=== PATIENT | female | born 1950 | race Caucasian/White ===

== ENCOUNTER 2017-01-25 02:02 | Emergency (ER) | payer MEDICARE ==
[~2017-01-25 02:02] MED LIST: ACET-66 PO; ALPR1TAB7 PO; AMIT75TA2 PO; ASPI-1197 PO; BACL10TA PO; CHLO500T3 PO; GABA-326 PO; LEVO88TA7 PO; MONT10TA24 PO; OXYC20TA41 PO; SERT100T12 PO; SIMV40TA59 PO
[2017-01-25 02:42] LABS: APPEARANCE,URINE Cloudy (CLEAR); BILIRUBIN,URINE Negative (NEGATIVE); COLOR,URINE Yellow (YELLOW); GLUCOSE, URINE (UA) Negative (NEGATIVE); KETONES,URINE 40 mg/dL (NEGATIVE); LEUKOCYTE ESTERASE ,URINE Large (NEGATIVE); NITRATE,URINE Positive (NEGATIVE); OCCULT BLOOD,URINE Negative (NEGATIVE); PROTEIN,URINE Negative (NEGATIVE)
[2017-01-25 02:46] LABS: BASOPHILS % (AUTO) 0.4 % (0.0-5.0); EOSINOPHILS % (AUTO) 0.9 % (0.0-8.0); LYMPHOCYTES % (AUTO) 9.8 % (21.0-51.0); MEAN CORPUSCULAR HEMOGLOBIN 28.8 pg (27.0-33.0); MEAN CORPUSCULAR HGB CONC 32.8 g/dL (32.0-36.0); MEAN CORPUSCULAR VOLUME 87.9 fL (79-99); MONOCYTES % (AUTO) 10.7 % (3.0-13.0); NEUTROPHILS % (AUTO) 78.2 % (40.0-77.0); PLATELET COUNT (AUTO) 310 K/uL (130-400); RED BLOOD CELL COUNT(AUTO) 3.87 MIL/uL (4.00-5.50); RED CELL DISTRIBUTION WIDTH 14.5 % (11.0-15.5); WHITE BLOOD COUNT (AUTO) 7.3 K/uL (4.8-10.8)
[2017-01-25 02:50] LABS: AMPHET/METH SCREEN,URINE NEGATIVE (NEGATIVE); BARBITURATE SCREEN, URINE NEGATIVE (NEGATIVE); BENZODIAZEPINES SCREEN,URINE NEGATIVE (NEGATIVE); CANNABINOID SCREEN,URINE NEGATIVE (NEGATIVE); COCAINE SCREEN,URINE NEGATIVE (NEGATIVE); OPIATE SCREEN,URINE NEGATIVE (NEGATIVE); PHENCYCLIDINE SCREEN,URINE NEGATIVE (NEGATIVE)
[2017-01-25 02:53] LABS: RBC,URINE None Seen /HPF (0-1)
[2017-01-25 02:54] LABS: BACTERIA,URINE Many /HPF (None Seen); MUCUS,URINE None Seen LPF (None Seen); SQUAMOUS EPITHELIAL CELL,UR Few /LPF (0-2)
[2017-01-25 02:59] LABS: ALBUMIN 2.1 g/dL (3.5-5.0); BILIRUBIN,TOTAL 0.3 mg/dL (0.2-1.0); CREATININE 0.5 mg/dL (0.5-1.5); TOTAL PROTEIN, SERUM 5.8 g/dL (6.0-8.3)
[2017-01-25 03:01] LABS: POTASSIUM 2.8 mmol/L (3.5-5.1)
[2017-01-25] MEDS ORDERED: POTASSIUM BICARB/CIT AC 25 MEQ TABLET.EFF ONE ×2 (03:28→09:31)
[2017-01-25] MEDS ORDERED: LORAZEPAM 2 MG/ML 1 ML VIAL ONE (03:29)
[2017-01-25] MEDS ORDERED: CEFTRIAXONE SODIUM 1 GM ONE (07:23)
[2017-01-25] MEDS ORDERED: SODIUM CHLORIDE 0.9% 1000ML 1,000 ML IV ONE (07:28)
== END 2017-01-25 11:09 | disposition home or self-care (01) ==
LOC: EDH 02:02
DX: G40.909 Epilepsy, unspecified, not intractable, without status epilepticus (principal); F19.939 Other psychoactive substance use, unspecified with withdrawal, unspecified; N81.9 Female genital prolapse, unspecified; E87.6 Hypokalemia; J45.909 Unspecified asthma, uncomplicated; M19.90 Unspecified osteoarthritis, unspecified site; R42 Dizziness and giddiness
CPT/HCPCS: 36415; 51702; 70160; 70450; 72125; 74000; 80053; 80305; 81001; 85025; 87088; 87186; 96361; 96374; 96375; 99285; J0696; J2060; J7030; 51701

== ENCOUNTER → 2017-01-31 | Outpatient (CLI) | payer MEDICARE ==
[~2017-01-31] MED LIST changes: +ALBU18HF7 IH; +BUDE10.22 IH; +CLOP75TA32 PO; +DOCU100T9 PO; +FLUT16H NS; +REGADENOSON 0.4 MG/5 ML PF SYG IVP SCH
== END | disposition home or self-care (01) ==
LOC: SHCH 16:55
PROVIDERS: ATTEND Internal Medicine Cardiovascular Disease
DX: R07.9 Chest pain, unspecified (principal)
CPT/HCPCS: 78452; 93017; 96374; A9500 ×2; J2785

== ENCOUNTER 2017-04-08 22:43 | Inpatient (IN) | payer MEDICARE, OTHER ==
[~2017-04-08] VITALS: Ht 160 cm; Wt 53.5 kg
[~2017-04-08 22:43] MED LIST changes: -ALBU18HF7 IH; -BUDE10.22 IH; -CLOP75TA32 PO; -DOCU100T9 PO; -FLUT16H NS; -REGADENOSON 0.4 MG/5 ML PF SYG IVP SCH
[2017-04-08] MEDS ORDERED: ONDANSETRON HCL 4 MG/2 ML VIAL ONE (23:57)
[2017-04-08] MEDS ORDERED: SODIUM CHLORIDE 0.9% 1000ML 1,000 ML IV ONE (23:57)
[2017-04-08] MEDS ORDERED: MORPHINE SULFATE 4 MG/1ML SYG ONE (23:57)
[2017-04-09 00:02] LABS: APPEARANCE,URINE Clear (CLEAR); BILIRUBIN,URINE Negative (NEGATIVE); COLOR,URINE Yellow (YELLOW); GLUCOSE, URINE (UA) Negative (NEGATIVE); KETONES,URINE Negative (NEGATIVE); LEUKOCYTE ESTERASE ,URINE Negative (NEGATIVE); NITRATE,URINE Negative (NEGATIVE); OCCULT BLOOD,URINE Negative (NEGATIVE); PH,URINE 7.5 (5.0-8.0); PROTEIN,URINE Negative (NEGATIVE); UROBILINOGEN,URINE 0.2 mg/dL (0.2-1.0)
[2017-04-09 00:20] LABS: BASOPHILS % (AUTO) 0.6 % (0.0-5.0); EOSINOPHILS % (AUTO) 1.5 % (0.0-8.0); HEMATOCRIT 35.2 % (36-48); LYMPHOCYTES % (AUTO) 13.8 % (21.0-51.0); MEAN CORPUSCULAR HEMOGLOBIN 28.1 pg (27.0-33.0); MEAN CORPUSCULAR HGB CONC 33.3 g/dL (32.0-36.0); MEAN CORPUSCULAR VOLUME 84.5 fL (79-99); MONOCYTES % (AUTO) 8.3 % (3.0-13.0); NEUTROPHILS % (AUTO) 75.8 % (40.0-77.0); PLATELET COUNT (AUTO) 197 K/uL (130-400); RED BLOOD CELL COUNT(AUTO) 4.16 MIL/uL (4.00-5.50); RED CELL DISTRIBUTION WIDTH 14.2 % (11.0-15.5); WHITE BLOOD COUNT (AUTO) 6.3 K/uL (4.8-10.8)
[2017-04-09 00:32] LABS: CREATININE 0.6 mg/dL (0.5-1.5); POTASSIUM 3.9 mmol/L (3.5-5.1)
[2017-04-09 00:37] LABS: ALBUMIN 3.1 g/dL (3.5-5.0); BILIRUBIN,TOTAL 0.5 mg/dL (0.2-1.0); TOTAL PROTEIN, SERUM 6.7 g/dL (6.0-8.3)
[2017-04-09 01:26] LABS: ERYTHROCYTE SEDIMENTATION RATE 22 MM/HR (0-15)
[2017-04-09] MEDS ORDERED: VANCOMYCIN 1GM+NS 250ML 250 ML IV SCH (02:00)
[2017-04-09] MEDS ORDERED: ACETAMINOPHEN 325 MG TAB PO PRN ×2 (02:00)
[2017-04-09] MEDS ORDERED: POTASSIUM CHLORIDE 20 MEQ ERTAB PO PRN (02:00)
[2017-04-09] MEDS ORDERED: POTASSIUM CHLORIDE 20MEQ/100ML 100 ML IV PRN (02:00)
[2017-04-09] MEDS ORDERED: HYDRALAZINE HCL 20 MG/ML VIAL IV PRN (02:00)
[2017-04-09] MEDS ORDERED: MORPHINE SULFATE 2 MG/ML 1ML SYG IV PRN (02:00)
[2017-04-09] MEDS ORDERED: POTASSIUM CHLORIDE 10% ELIXIR 20 MEQ/15 ML UDCUP PO PRN (02:00)
[2017-04-09] MEDS ORDERED: CEFTRIAXONE 1GM/D5W 50ML 50 ML IV SCH (02:00)
[2017-04-09] MEDS ORDERED: LIDOCAINE HCL-MPF 1% 2ML VIAL IVP PRN (02:00)
[2017-04-09] MEDS ORDERED: ONDANSETRON HCL 4 MG/2 ML VIAL IV PRN (02:00)
[2017-04-09] MEDS ORDERED: VANCOMYCIN 1GM+NS 250ML 250 ML IV ONE (02:05)
[2017-04-09 02:23] LABS: AMPHET/METH SCREEN,URINE NEGATIVE (NEGATIVE); BARBITURATE SCREEN, URINE NEGATIVE (NEGATIVE); BENZODIAZEPINES SCREEN,URINE POSITIVE (NEGATIVE); CANNABINOID SCREEN,URINE NEGATIVE (NEGATIVE); COCAINE SCREEN,URINE NEGATIVE (NEGATIVE); OPIATE SCREEN,URINE NEGATIVE (NEGATIVE); PHENCYCLIDINE SCREEN,URINE NEGATIVE (NEGATIVE)
[2017-04-09 02:45] VITALS: BP 114/61
[2017-04-09] MEDS ORDERED: MORPHINE SULFATE 4 MG/1ML SYG ONE (03:40)
[2017-04-09] MEDS: CEFTRIAXONE SODIUM 1 GM IVP SCH (03:43)
[2017-04-09] MEDS ORDERED: CLOP75TA32 PO (04:42)
[2017-04-09] MEDS ORDERED: BUDE10.22 IH (04:42)
[2017-04-09] MEDS ORDERED: FLUT16H NS (04:42)
[2017-04-09] MEDS ORDERED: DOCU100T9 PO (04:42)
[2017-04-09] MEDS ORDERED: ALBU18HF7 IH (04:42)
[2017-04-09] MEDS ORDERED: GABA-326 PO (04:42)
[2017-04-09] MEDS: ACETAMINOPHEN-CODEINE 300/30MG TAB PO PRN ×2 (05:52→10:57)
[2017-04-09 06:18] LABS: HEMATOCRIT 32.8 % (36-48); MEAN CORPUSCULAR HEMOGLOBIN 29.2 pg (27.0-33.0); MEAN CORPUSCULAR HGB CONC 34.5 g/dL (32.0-36.0); MEAN CORPUSCULAR VOLUME 84.5 fL (79-99); PLATELET COUNT (AUTO) 184 K/uL (130-400); RED BLOOD CELL COUNT(AUTO) 3.88 MIL/uL (4.00-5.50); RED CELL DISTRIBUTION WIDTH 14.6 % (11.0-15.5); WHITE BLOOD COUNT (AUTO) 6.1 K/uL (4.8-10.8)
[2017-04-09 06:45] LABS: CREATININE 0.7 mg/dL (0.5-1.5); POTASSIUM 4.1 mmol/L (3.5-5.1)
[2017-04-09 08:00] VITALS: BP 107/66
[2017-04-09] MEDS ORDERED: MORPHINE SULFATE 2 MG/ML 1ML SYG IVP PRN (09:45)
[2017-04-09] MEDS ORDERED: VANCOMYCIN PROTOCOL PER PHARMACY IV PRN (09:45)
[2017-04-09] MEDS: FAMOTIDINE 20MG TAB 20 MG TAB PO SCH ×2 (09:48→22:18)
[2017-04-09] MEDS ORDERED: ALBUTEROL SULFATE 0.083% 2.5 MG/3 ML INH IH PRN (10:15)
[2017-04-09] MEDS: VANCOMYCIN 1GM+NS 250ML 250 ML IV SCH ×2 (11:00→22:19)
[2017-04-09 11:38] VITALS: BP 104/63
[2017-04-09] MEDS: ALBUTEROL SULFATE 0.083% 2.5 MG/3 ML INH IH SCH ×3 (14:12→22:41)
[2017-04-09] MEDS: BACLOFEN 10 MG TABLET PO SCH ×2 (14:57→22:18)
[2017-04-09] MEDS: KETOROLAC TROMETHAMINE 15MG/ML IV PRN (14:58)
[2017-04-09 16:00] VITALS: BP 114/60
[2017-04-09 19:51] VITALS: BP 139/72
[2017-04-09] MEDS: AMITRIPTYLINE HCL PO SCH (21:00)
[2017-04-09] MEDS: ATORVASTATIN CALCIUM 20 MG TABLET PO SCH (22:18)
[2017-04-09] MEDS: MORPHINE SULFATE 4 MG/1ML SYG IVP PRN (22:27)
[2017-04-10] VITALS (7 sets, daily range): BP systolic 92–123; BP diastolic 51–67
[2017-04-10] MEDS: ALBUTEROL SULFATE 0.083% 2.5 MG/3 ML INH IH SCH ×4 (01:27→22:01)
[2017-04-10] MEDS: MORPHINE SULFATE 4 MG/1ML SYG IVP PRN (02:35)
[2017-04-10] MEDS: CEFTRIAXONE SODIUM 1 GM IVP SCH (04:13)
[2017-04-10 06:10] LABS: HEMATOCRIT 34.5 % (36-48); MEAN CORPUSCULAR HGB CONC 32.7 g/dL (32.0-36.0); MEAN CORPUSCULAR VOLUME 85.6 fL (79-99); PLATELET COUNT (AUTO) 196 K/uL (130-400); RED BLOOD CELL COUNT(AUTO) 4.03 MIL/uL (4.00-5.50); RED CELL DISTRIBUTION WIDTH 14.7 % (11.0-15.5); WHITE BLOOD COUNT (AUTO) 4.7 K/uL (4.8-10.8)
[2017-04-10 06:16] LABS: CREATININE 0.6 mg/dL (0.5-1.5); POTASSIUM 3.7 mmol/L (3.5-5.1)
[2017-04-10] MEDS: BUDESONIDE 0.5 MG/2 ML INH IH PRN (06:27)
[2017-04-10] MEDS: LEVOTHYROXINE 88 MCG TABLET PO SCH (07:27)
[2017-04-10] MEDS: FLUTICASONE PROPIONATE 50MCG/SPRAY 16 GM BOTTLE EN SCH (09:00)
[2017-04-10] MEDS: ENOXAPARIN SODIUM 40 MG/0.4 ML SYRINGE SQ SCH (09:03)
[2017-04-10] MEDS: CLOPIDOGREL BISULFATE 75 MG TAB PO SCH (09:03)
[2017-04-10] MEDS: ASPIRIN 81MG TAB.CHEW PO SCH (09:04)
[2017-04-10] MEDS: BACLOFEN 10 MG TABLET PO SCH ×3 (09:04→20:56)
[2017-04-10] MEDS: DOCUSATE SODIUM 100 MG CAP PO SCH (09:04)
[2017-04-10] MEDS: FAMOTIDINE 20MG TAB 20 MG TAB PO SCH ×2 (09:04→20:56)
[2017-04-10] MEDS: VANCOMYCIN 1GM+NS 250ML 250 ML IV SCH ×2 (09:05→23:12)
[2017-04-10] MEDS: KETOROLAC TROMETHAMINE 15MG/ML IV PRN ×2 (11:06→18:43)
[2017-04-10] MEDS: ALPRAZOLAM 1 MG TAB PO PRN ×2 (11:06→23:15)
[2017-04-10] MEDS: ATORVASTATIN CALCIUM 20 MG TABLET PO SCH (20:56)
[2017-04-10] MEDS: AMITRIPTYLINE HCL PO SCH (21:00)
[2017-04-11] MEDS: CEFTRIAXONE SODIUM 1 GM IVP SCH (03:10)
[2017-04-11 03:43] VITALS: BP 114/64
[2017-04-11] MEDS: LEVOTHYROXINE 88 MCG TABLET PO SCH (06:36)
[2017-04-11 06:53] LABS: HEMATOCRIT 37.6 % (36-48); MEAN CORPUSCULAR HGB CONC 32.7 g/dL (32.0-36.0); MEAN CORPUSCULAR VOLUME 85.6 fL (79-99); NUCLEATED RED BLOOD CELLS 0.1 % (0.0-0.19); PLATELET COUNT (AUTO) 213 K/uL (130-400); RED BLOOD CELL COUNT(AUTO) 4.39 MIL/uL (4.00-5.50); RED CELL DISTRIBUTION WIDTH 14.7 % (11.0-15.5); WHITE BLOOD COUNT (AUTO) 3.4 K/uL (4.8-10.8)
[2017-04-11 06:59] LABS: CREATININE 0.6 mg/dL (0.5-1.5); POTASSIUM 4.3 mmol/L (3.5-5.1)
[2017-04-11] MEDS: BUDESONIDE 0.5 MG/2 ML INH IH PRN (07:07)
[2017-04-11] MEDS: ALBUTEROL SULFATE 0.083% 2.5 MG/3 ML INH IH SCH ×3 (07:07→21:57)
[2017-04-11 08:00] VITALS: BP 102/62
[2017-04-11] MEDS: DOCUSATE SODIUM 100 MG CAP PO SCH (08:29)
[2017-04-11] MEDS: KETOROLAC TROMETHAMINE 15MG/ML IV PRN (08:29)
[2017-04-11] MEDS: ACETAMINOPHEN-CODEINE 300/30MG TAB PO PRN ×3 (08:29→20:48)
[2017-04-11] MEDS: FLUTICASONE PROPIONATE 50MCG/SPRAY 16 GM BOTTLE EN SCH (08:30)
[2017-04-11] MEDS: ENOXAPARIN SODIUM 40 MG/0.4 ML SYRINGE SQ SCH (08:30)
[2017-04-11] MEDS: FAMOTIDINE 20MG TAB 20 MG TAB PO SCH ×2 (08:30→20:44)
[2017-04-11] MEDS: BACLOFEN 10 MG TABLET PO SCH ×3 (08:30→20:44)
[2017-04-11] MEDS: CLOPIDOGREL BISULFATE 75 MG TAB PO SCH (08:30)
[2017-04-11] MEDS: ASPIRIN 81MG TAB.CHEW PO SCH (08:30)
[2017-04-11 11:00] VITALS: BP 115/59
[2017-04-11] MEDS: HYDROMORPHONE HCL 2 MG/ML VIAL IVP PRN (14:32)
[2017-04-11] MEDS: VANCOMYCIN 1GM+NS 250ML 250 ML IV SCH ×2 (14:33→22:00)
[2017-04-11 16:00] VITALS: BP 113/68
[2017-04-11 20:00] VITALS: BP 102/63
[2017-04-11] MEDS: ATORVASTATIN CALCIUM 20 MG TABLET PO SCH (20:45)
[2017-04-11] MEDS ORDERED: DIATR MEGLU/DIATRIZOATE SODIUM 30 ML BOTTLE PO ONE (20:55)
[2017-04-11] MEDS: AMITRIPTYLINE HCL PO SCH (21:00)
[2017-04-12] VITALS: BP 107/61
[2017-04-12 04:00] VITALS: BP 123/57
[2017-04-12 04:45] LABS: HEMATOCRIT 30.6 % (36-48); MEAN CORPUSCULAR HGB CONC 35.4 g/dL (32.0-36.0); MEAN CORPUSCULAR VOLUME 84.7 fL (79-99); PLATELET COUNT (AUTO) 206 K/uL (130-400); RED BLOOD CELL COUNT(AUTO) 3.62 MIL/uL (4.00-5.50); RED CELL DISTRIBUTION WIDTH 14.2 % (11.0-15.5); WHITE BLOOD COUNT (AUTO) 2.8 K/uL (4.8-10.8)
[2017-04-12 05:10] LABS: EOSINOPHILS % (MANUAL) 8 % (1-6); LYMPHOCYTES % (MANUAL) 32 % (22-44); SEGMENTED NEUTROPHILS % 60 % (40-70)
[2017-04-12 05:11] LABS: MAN.DIFF COMMENT-IMPRESSION MANUAL DIFFERENTIAL; PLATELET MORPHOLOGY COMMENT ADEQUATE
[2017-04-12] MEDS: CEFTRIAXONE SODIUM 1 GM IVP SCH (05:17)
[2017-04-12] MEDS: ALBUTEROL SULFATE 0.083% 2.5 MG/3 ML INH IH SCH ×3 (06:41→22:19)
[2017-04-12] MEDS: BUDESONIDE 0.5 MG/2 ML INH IH PRN ×2 (06:50→22:23)
[2017-04-12] MEDS: LEVOTHYROXINE 88 MCG TABLET PO SCH (06:57)
[2017-04-12] MEDS: ASPIRIN 81MG TAB.CHEW PO SCH (07:37)
[2017-04-12] MEDS: ACETAMINOPHEN-CODEINE 300/30MG TAB PO PRN ×3 (07:37→17:59)
[2017-04-12] MEDS: FAMOTIDINE 20MG TAB 20 MG TAB PO SCH ×2 (07:37→21:16)
[2017-04-12] MEDS: ALPRAZOLAM 1 MG TAB PO PRN ×3 (07:37→17:59)
[2017-04-12] MEDS: DOCUSATE SODIUM 100 MG CAP PO SCH (07:37)
[2017-04-12] MEDS: ENOXAPARIN SODIUM 40 MG/0.4 ML SYRINGE SQ SCH (07:38)
[2017-04-12] MEDS: HYDROMORPHONE HCL 2 MG/ML VIAL IVP PRN ×4 (07:38→22:44)
[2017-04-12] MEDS: FLUTICASONE PROPIONATE 50MCG/SPRAY 16 GM BOTTLE EN SCH (07:38)
[2017-04-12 08:00] VITALS: BP 101/53
[2017-04-12 11:00] VITALS: BP 125/66
[2017-04-12] MEDS: VANCOMYCIN 1GM+NS 250ML 250 ML IV SCH ×2 (11:43→22:52)
[2017-04-12] MEDS: CLOPIDOGREL BISULFATE 75 MG TAB PO SCH (11:43)
[2017-04-12] MEDS: BACLOFEN 10 MG TABLET PO SCH ×3 (11:43→21:16)
[2017-04-12 16:00] VITALS: BP 113/61
[2017-04-12 20:00] VITALS: BP 117/70
[2017-04-12] MEDS: AMITRIPTYLINE HCL PO SCH (21:00)
[2017-04-12] MEDS: ATORVASTATIN CALCIUM 20 MG TABLET PO SCH (21:16)
[2017-04-13] VITALS: BP 112/56
[2017-04-13 04:00] VITALS: BP 143/69
[2017-04-13 04:20] LABS: HEMATOCRIT 33.8 % (36-48); MEAN CORPUSCULAR HEMOGLOBIN 28.3 pg (27.0-33.0); MEAN CORPUSCULAR HGB CONC 33.6 g/dL (32.0-36.0); MEAN CORPUSCULAR VOLUME 84.3 fL (79-99); PLATELET COUNT (AUTO) 233 K/uL (130-400); RED BLOOD CELL COUNT(AUTO) 4.01 MIL/uL (4.00-5.50); RED CELL DISTRIBUTION WIDTH 14.3 % (11.0-15.5); WHITE BLOOD COUNT (AUTO) 2.9 K/uL (4.8-10.8)
[2017-04-13 04:46] LABS: CREATININE 0.6 mg/dL (0.5-1.5); POTASSIUM 3.7 mmol/L (3.5-5.1)
[2017-04-13] MEDS: CEFTRIAXONE SODIUM 1 GM IVP SCH (05:20)
[2017-04-13] MEDS: LEVOTHYROXINE 88 MCG TABLET PO SCH (06:40)
[2017-04-13] MEDS: ALBUTEROL SULFATE 0.083% 2.5 MG/3 ML INH IH SCH ×3 (06:52→23:28)
[2017-04-13 07:00] VITALS: BP 144/78
[2017-04-13] MEDS: BUDESONIDE 0.5 MG/2 ML INH IH PRN (07:03)
[2017-04-13] MEDS: HYDROMORPHONE HCL 2 MG/ML VIAL IVP PRN ×4 (08:32→21:04)
[2017-04-13] MEDS: FAMOTIDINE 20MG TAB 20 MG TAB PO SCH ×2 (10:27→20:59)
[2017-04-13] MEDS: VANCOMYCIN 1GM+NS 250ML 250 ML IV SCH ×2 (10:27→21:05)
[2017-04-13] MEDS: BACLOFEN 10 MG TABLET PO SCH ×3 (10:27→20:59)
[2017-04-13] MEDS: ASPIRIN 81MG TAB.CHEW PO SCH (10:27)
[2017-04-13] MEDS: DOCUSATE SODIUM 100 MG CAP PO SCH (10:27)
[2017-04-13] MEDS: CLOPIDOGREL BISULFATE 75 MG TAB PO SCH (10:27)
[2017-04-13] MEDS: ENOXAPARIN SODIUM 40 MG/0.4 ML SYRINGE SQ SCH (10:28)
[2017-04-13] MEDS: FLUTICASONE PROPIONATE 50MCG/SPRAY 16 GM BOTTLE EN SCH (10:30)
[2017-04-13 11:00] VITALS: BP 125/73
[2017-04-13 16:00] VITALS: BP 108/62
[2017-04-13 19:56] VITALS: BP 119/69
[2017-04-13] MEDS: GABAPENTIN 300 MG CAPSULE PO SCH (20:58)
[2017-04-13] MEDS: ATORVASTATIN CALCIUM 20 MG TABLET PO SCH (20:58)
[2017-04-13] MEDS: AMITRIPTYLINE HCL PO SCH (21:00)
[2017-04-14] VITALS: BP 114/68
[2017-04-14] MEDS: HYDROMORPHONE HCL 2 MG/ML VIAL IVP PRN ×5 (01:06→20:26)
[2017-04-14 04:00] VITALS: BP 122/58
[2017-04-14] MEDS: CEFTRIAXONE SODIUM 1 GM IVP SCH (06:01)
[2017-04-14] MEDS: LEVOTHYROXINE 88 MCG TABLET PO SCH (06:01)
[2017-04-14] MEDS: ALBUTEROL SULFATE 0.083% 2.5 MG/3 ML INH IH SCH ×3 (06:46→22:07)
[2017-04-14] MEDS: BUDESONIDE 0.5 MG/2 ML INH IH PRN (06:57)
[2017-04-14 08:00] VITALS: BP 118/71
[2017-04-14] MEDS: VANCOMYCIN 1GM+NS 250ML 250 ML IV SCH (10:21)
[2017-04-14] MEDS: DOCUSATE SODIUM 100 MG CAP PO SCH (10:21)
[2017-04-14] MEDS: GABAPENTIN 300 MG CAPSULE PO SCH ×4 (10:28→20:17)
[2017-04-14] MEDS: BACLOFEN 10 MG TABLET PO SCH ×3 (10:29→20:17)
[2017-04-14] MEDS: ASPIRIN 81MG TAB.CHEW PO SCH (10:29)
[2017-04-14] MEDS: FAMOTIDINE 20MG TAB 20 MG TAB PO SCH ×2 (10:29→20:17)
[2017-04-14] MEDS: CLOPIDOGREL BISULFATE 75 MG TAB PO SCH (10:29)
[2017-04-14] MEDS: FLUTICASONE PROPIONATE 50MCG/SPRAY 16 GM BOTTLE EN SCH (10:29)
[2017-04-14] MEDS: ENOXAPARIN SODIUM 40 MG/0.4 ML SYRINGE SQ SCH (10:30)
[2017-04-14 11:26] VITALS: BP 124/71
[2017-04-14] MEDS: ACETAMINOPHEN-CODEINE 300/30MG TAB PO PRN (13:05)
[2017-04-14 15:46] VITALS: BP 119/56
[2017-04-14] MEDS ORDERED: COMPOUND IV REFRIGERATED 1 EACH IVSOLN MISC PRN (16:30)
[2017-04-14] MEDS ORDERED: VANCOMYCIN PROTOCOL PER PHARMACY IV SCH (17:45)
[2017-04-14] MEDS ORDERED: VANCOMYCIN 1.5 GM in SODIUM CHLORIDE 0.9% 250 ML IV SCH (18:00)
[2017-04-14 20:00] VITALS: BP 119/96
[2017-04-14] MEDS: ATORVASTATIN CALCIUM 20 MG TABLET PO SCH (20:17)
[2017-04-14] MEDS: AMITRIPTYLINE HCL PO SCH (20:52)
[2017-04-15] VITALS: BP 112/66
[2017-04-15] MEDS: HYDROMORPHONE HCL 2 MG/ML VIAL IVP PRN ×3 (00:05→08:30)
[2017-04-15] MEDS: VANCOMYCIN 750MG + NS 250 ML IV SCH ×4 (01:07→12:39)
[2017-04-15 04:00] VITALS: BP 132/65
[2017-04-15] MEDS: CEFTRIAXONE SODIUM 1 GM IVP SCH (04:00)
[2017-04-15] MEDS: ALBUTEROL SULFATE 0.083% 2.5 MG/3 ML INH IH SCH ×2 (07:22→14:45)
[2017-04-15 08:00] VITALS: BP 132/72
[2017-04-15] MEDS: GABAPENTIN 300 MG CAPSULE PO SCH ×2 (08:53→12:38)
[2017-04-15] MEDS: CLOPIDOGREL BISULFATE 75 MG TAB PO SCH (08:53)
[2017-04-15] MEDS: LEVOTHYROXINE 88 MCG TABLET PO SCH (08:53)
[2017-04-15] MEDS: DOCUSATE SODIUM 100 MG CAP PO SCH (08:54)
[2017-04-15] MEDS: ASPIRIN 81MG TAB.CHEW PO SCH (08:54)
[2017-04-15] MEDS: BACLOFEN 10 MG TABLET PO SCH ×2 (08:54→15:02)
[2017-04-15] MEDS: FLUTICASONE PROPIONATE 50MCG/SPRAY 16 GM BOTTLE EN SCH (08:54)
[2017-04-15] MEDS: FAMOTIDINE 20MG TAB 20 MG TAB PO SCH (08:54)
[2017-04-15] MEDS: ENOXAPARIN SODIUM 40 MG/0.4 ML SYRINGE SQ SCH (08:55)
[2017-04-15] MEDS: HYDROMORPHONE HCL 0.5 MG/0.5 ML ML IVP PRN ×2 (12:34→16:52)
[2017-04-15] MEDS: ACETAMINOPHEN-CODEINE 300/30MG TAB PO PRN (15:03)
== END 2017-04-15 18:45 | DRG 603 ==
LOC: EDH 22:43 → OBSVTOIN 04-09 01:46 → 3DH 04-09 01:46
PROVIDERS: ADMIT Internal Medicine; ATTEND Internal Medicine
DX: L03.113 Cellulitis of right upper limb (principal); G62.9 Polyneuropathy, unspecified; E03.9 Hypothyroidism, unspecified; I10 Essential (primary) hypertension; I25.10 Atherosclerotic heart disease of native coronary artery without angina pectoris; M81.0 Age-related osteoporosis without current pathological fracture; M79.7 Fibromyalgia; F32.9 Major depressive disorder, single episode, unspecified; F41.9 Anxiety disorder, unspecified; G40.909 Epilepsy, unspecified, not intractable, without status epilepticus; J45.909 Unspecified asthma, uncomplicated; M41.9 Scoliosis, unspecified; Z79.891 Long term (current) use of opiate analgesic; Z85.3 Personal history of malignant neoplasm of breast; Z85.820 Personal history of malignant melanoma of skin; Z86.73 Personal history of transient ischemic attack (TIA), and cerebral infarction without residual deficits; Z90.13 Acquired absence of bilateral breasts and nipples; Z98.82 Breast implant status; M19.90 Unspecified osteoarthritis, unspecified site; Z88.1 Allergy status to other antibiotic agents; T85.898A Other specified complication of other internal prosthetic devices, implants and grafts, initial encounter
CPT/HCPCS: 36415; 71250; 74176; 76641; 80048; 80053; 80202; 80305; 81003; 85007; 85025; 85027; 85378; 85651; 86141; 87040; 93970; 93971; 94640; 94664; A4218; A4344; J0696; J1170; J1650; J1885; J2270; J2405; J3370; J7030; Q9963

== ENCOUNTER 2017-06-02 06:27 | Emergency (ER) | payer MEDICARE ==
[~2017-06-02 06:27] MED LIST changes: +ALBU18HF7 IH; +BUDE10.22 IH; -CHLO500T3 PO; +CLOP75TA32 PO; +DOCU100T9 PO; +FLUT16H NS; -MONT10TA24 PO; -OXYC20TA41 PO; -SERT100T12 PO
[2017-06-02 06:59] LABS: BASOPHILS % (AUTO) 0.7 % (0.0-5.0); EOSINOPHILS % (AUTO) 1.9 % (0.0-8.0); HEMATOCRIT 36.5 % (36-48); LYMPHOCYTES % (AUTO) 18.1 % (21.0-51.0); MEAN CORPUSCULAR HEMOGLOBIN 28.3 pg (27.0-33.0); MEAN CORPUSCULAR HGB CONC 33.7 g/dL (32.0-36.0); MEAN CORPUSCULAR VOLUME 83.8 fL (79-99); MONOCYTES % (AUTO) 7.1 % (3.0-13.0); NEUTROPHILS % (AUTO) 72.2 % (40.0-77.0); NUCLEATED RED BLOOD CELLS 0.1 % (0.0-0.19); PLATELET COUNT (AUTO) 212 K/uL (130-400); RED BLOOD CELL COUNT(AUTO) 4.36 MIL/uL (4.00-5.50); RED CELL DISTRIBUTION WIDTH 14.6 % (11.0-15.5)
[2017-06-02] MEDS ORDERED: LORAZEPAM 2 MG/ML 1 ML VIAL ONE (07:07)
[2017-06-02 07:10] LABS: CREATININE 0.6 mg/dL (0.5-1.5); POTASSIUM 3.8 mmol/L (3.5-5.1)
[2017-06-02 07:16] LABS: ALBUMIN 3.1 g/dL (3.5-5.0); BILIRUBIN,TOTAL 0.2 mg/dL (0.2-1.0); TOTAL PROTEIN, SERUM 6.7 g/dL (6.0-8.3)
[2017-06-02 07:25] LABS: APPEARANCE,URINE Clear (CLEAR); BILIRUBIN,URINE Negative (NEGATIVE); COLOR,URINE Yellow (YELLOW); GLUCOSE, URINE (UA) Negative (NEGATIVE); KETONES,URINE Negative (NEGATIVE); LEUKOCYTE ESTERASE ,URINE Small (NEGATIVE); NITRATE,URINE Negative (NEGATIVE); OCCULT BLOOD,URINE Moderate (NEGATIVE); PROTEIN,URINE Negative (NEGATIVE)
[2017-06-02 07:32] LABS: BACTERIA,URINE Rare /HPF (None Seen); SQUAMOUS EPITHELIAL CELL,UR Rare /HPF (0-2); WBC,URINE 0-1 /HPF (0-1)
[2017-06-02 07:33] LABS: AMPHET/METH SCREEN,URINE NEGATIVE (NEGATIVE); BARBITURATE SCREEN, URINE NEGATIVE (NEGATIVE); BENZODIAZEPINES SCREEN,URINE POSITIVE (NEGATIVE); CANNABINOID SCREEN,URINE NEGATIVE (NEGATIVE); COCAINE SCREEN,URINE NEGATIVE (NEGATIVE); OPIATE SCREEN,URINE NEGATIVE (NEGATIVE); PHENCYCLIDINE SCREEN,URINE NEGATIVE (NEGATIVE)
== END 2017-06-02 10:47 | disposition home or self-care (01) ==
LOC: EDH 06:27
DX: R56.9 Unspecified convulsions (principal); T42.4X6A Underdosing of benzodiazepines, initial encounter; M19.90 Unspecified osteoarthritis, unspecified site; J45.909 Unspecified asthma, uncomplicated; M79.7 Fibromyalgia; M81.0 Age-related osteoporosis without current pathological fracture; I25.10 Atherosclerotic heart disease of native coronary artery without angina pectoris; Z91.138 Patient's unintentional underdosing of medication regimen for other reason; Z79.899 Other long term (current) drug therapy; Y92.89 Other specified places as the place of occurrence of the external cause
CPT/HCPCS: 36415; 80053; 80305; 81001; 85025; 96374; 99284; J2060

== ENCOUNTER 2018-06-11 18:17 | Emergency (ER) | payer MEDICARE ==
[~2018-06-11 18:17] MED LIST changes: -GABA-326 PO; +GABA800T9 PO
[2018-06-11] MEDS ORDERED: TETANUS/DIPHTHERIA TOXOID [ADULT] 0.5 ML VIAL IM ONE (18:25)
[2018-06-11] MEDS ORDERED: CEFAZOLIN SODIUM 1 GM VIAL ONE (18:49)
[2018-06-11] MEDS ORDERED: MORPHINE SULFATE 4 MG/1ML SYG ONE ×2 (18:49→19:48)
[2018-06-11] MEDS ORDERED: ONDANSETRON HCL 4 MG/2 ML VIAL ONE (18:49)
[2018-06-11 18:52] LABS: BASOPHILS % (AUTO) 0.6 % (0.0-5.0); EOSINOPHILS % (AUTO) 1.5 % (0.0-8.0); HEMATOCRIT 34.2 % (36-48); LYMPHOCYTES % (AUTO) 17.5 % (21.0-51.0); MEAN CORPUSCULAR HEMOGLOBIN 25.8 pg (27.0-33.0); MEAN CORPUSCULAR HGB CONC 32.4 g/dL (32.0-36.0); MEAN CORPUSCULAR VOLUME 79.7 fL (79-99); MONOCYTES % (AUTO) 8.8 % (3.0-13.0); NEUTROPHILS % (AUTO) 71.6 % (40.0-77.0); PLATELET COUNT (AUTO) 209 K/uL (130-400); RED BLOOD CELL COUNT(AUTO) 4.29 MIL/uL (4.00-5.50); RED CELL DISTRIBUTION WIDTH 14.4 % (11.0-15.5); WHITE BLOOD COUNT (AUTO) 5.7 K/uL (4.8-10.8)
[2018-06-11 19:05] LABS: PROTHROMBIN TIME 10.5 SEC (9.6-11.6)
== END 2018-06-11 20:14 | disposition home or self-care (01) ==
LOC: EDH 18:17
DX: S91.312A Laceration without foreign body, left foot, initial encounter (principal); J45.909 Unspecified asthma, uncomplicated; F32.9 Major depressive disorder, single episode, unspecified; F41.9 Anxiety disorder, unspecified; Z87.891 Personal history of nicotine dependence; Z88.7 Allergy status to serum and vaccine; W55.19XA Other contact with horse, initial encounter; Y93.89 Activity, other specified; Y92.89 Other specified places as the place of occurrence of the external cause; Y99.8 Other external cause status
CPT/HCPCS: 12044; 36415; 73630; 85025; 85610; 85730; 90471; 90714; 96374; 96375; 96376; 99285; J0690; J2270 ×2; J2405

== ENCOUNTER 2018-12-08 23:20 | Emergency (ER) | payer MEDICARE ==
[2018-12-09 00:17] LABS: BASOPHILS % (AUTO) 1.7 % (0.0-5.0); EOSINOPHILS % (AUTO) 4.4 % (0.0-8.0); HEMATOCRIT 36.6 % (36-48); INR 0.97 (0.85-1.15); LYMPHOCYTES % (AUTO) 19.5 % (21.0-51.0); MEAN CORPUSCULAR HEMOGLOBIN 28.1 pg (27.0-33.0); MEAN CORPUSCULAR HGB CONC 32.6 g/dL (32.0-36.0); MONOCYTES % (AUTO) 10.7 % (3.0-13.0); NEUTROPHILS % (AUTO) 63.7 % (40.0-77.0); NUCLEATED RED BLOOD CELLS 0.1 % (0.0-0.19); PARTIAL THROMBOPLASTIN TIME 27.5 SEC (26.3-35.5); PLATELET COUNT (AUTO) 180 K/uL (130-400); PROTHROMBIN TIME 10.2 SEC (9.6-11.6); RED BLOOD CELL COUNT(AUTO) 4.25 MIL/uL (4.00-5.50); RED CELL DISTRIBUTION WIDTH 16.5 % (11.0-15.5); WHITE BLOOD COUNT (AUTO) 4.7 K/uL (4.8-10.8)
[2018-12-09 00:29] LABS: ALBUMIN 3.2 g/dL (3.5-5.0); BILIRUBIN,TOTAL 0.2 mg/dL (0.2-1.0); CREATININE 0.6 mg/dL (0.5-1.5); TOTAL PROTEIN, SERUM 6.2 g/dL (6.0-8.3)
[2018-12-09 00:40] LABS: APPEARANCE,URINE Clear (CLEAR); BILIRUBIN,URINE Negative (NEGATIVE); COLOR,URINE Yellow (YELLOW); GLUCOSE, URINE (UA) Negative (NEGATIVE); KETONES,URINE Negative (NEGATIVE); LEUKOCYTE ESTERASE ,URINE Small (NEGATIVE); NITRATE,URINE Negative (NEGATIVE); OCCULT BLOOD,URINE Negative (NEGATIVE); PROTEIN,URINE Negative (NEGATIVE); UROBILINOGEN,URINE 0.2 mg/dL (0.2-1.0)
[2018-12-09 00:54] LABS: BACTERIA,URINE None Seen /HPF (None Seen); RBC,URINE None Seen /HPF (0-1); SQUAMOUS EPITHELIAL CELL,UR Rare /HPF (0-2)
[2018-12-09 00:58] LABS: POTASSIUM 4.4 mmol/L (3.5-5.1)
[2018-12-09] MEDS ORDERED: CLINDAMYCIN HCL 150 MG CAP ONE (01:41)
[2018-12-09] MEDS ORDERED: NAPROXEN 250 MG TAB ONE (01:41)
== END 2018-12-09 02:32 | disposition home or self-care (01) ==
LOC: EDH 23:20
DX: L03.116 Cellulitis of left lower limb (principal); M79.662 Pain in left lower leg; M79.661 Pain in right lower leg; I25.10 Atherosclerotic heart disease of native coronary artery without angina pectoris; F32.9 Major depressive disorder, single episode, unspecified; J45.909 Unspecified asthma, uncomplicated; M19.90 Unspecified osteoarthritis, unspecified site; F41.9 Anxiety disorder, unspecified
CPT/HCPCS: 36415; 71045; 80053; 81001; 82550; 84484; 85025; 85610; 85730; 93005; 93971

== ENCOUNTER 2019-05-09 05:56 | Emergency (ER) | payer MEDICARE ==
[2019-05-09] MEDS ORDERED: LIDOCAINE HCL 2% VISCOUS 15 ML UDCUP ONE (06:24)
[2019-05-09] MEDS ORDERED: CEFTRIAXONE SODIUM 1 GM ONE (06:25)
[2019-05-09] MEDS ORDERED: KETOROLAC TROMETHAMINE 30MG/ML ONE (06:25)
== END 2019-05-09 07:04 | disposition home or self-care (01) ==
LOC: EDH 05:56
DX: S51.851A Open bite of right forearm, initial encounter (principal); F41.9 Anxiety disorder, unspecified; M19.90 Unspecified osteoarthritis, unspecified site; J45.909 Unspecified asthma, uncomplicated; M79.7 Fibromyalgia; Z88.7 Allergy status to serum and vaccine; W55.01XA Bitten by cat, initial encounter; Y93.89 Activity, other specified; Y92.098 Other place in other non-institutional residence as the place of occurrence of the external cause; Y99.8 Other external cause status
CPT/HCPCS: 96374; 96375; 99284; J0696; J1885

== ENCOUNTER 2019-05-09 18:05 | Inpatient (IN) | payer MEDICARE ==
[~2019-05-09] VITALS: Ht 160 cm; Wt 51.7 kg
[2019-05-09 18:57] LABS: BASOPHILS % (AUTO) 0.2 % (0.0-5.0); EOSINOPHILS % (AUTO) 0.3 % (0.0-8.0); HEMATOCRIT 40.2 % (36-48); LYMPHOCYTES % (AUTO) 6.9 % (21.0-51.0); MEAN CORPUSCULAR HEMOGLOBIN 27.2 pg (27.0-33.0); MEAN CORPUSCULAR HGB CONC 31.8 g/dL (32.0-36.0); MEAN CORPUSCULAR VOLUME 85.5 fL (79-99); MONOCYTES % (AUTO) 7.7 % (3.0-13.0); NEUTROPHILS % (AUTO) 84.5 % (40.0-77.0); PLATELET COUNT (AUTO) 193 K/uL (130-400); RED CELL DISTRIBUTION WIDTH 14.7 % (11.0-15.5); WHITE BLOOD COUNT (AUTO) 10.8 K/uL (4.8-10.8)
[2019-05-09 19:23] LABS: ALBUMIN 3.2 g/dL (3.5-5.0); BILIRUBIN,TOTAL 0.5 mg/dL (0.2-1.0); CREATININE 0.8 mg/dL (0.5-1.5); POTASSIUM 4.6 mmol/L (3.5-5.1); TOTAL PROTEIN, SERUM 7.2 g/dL (6.0-8.3)
[2019-05-09] MEDS ORDERED: CLINDAMYCIN 900 MG/D5% WATER 50 ML IV ONE (19:24)
[2019-05-09] MEDS ORDERED: ACETAMINOPHEN EXTRA STRENGTH 500 MG TABLET ONE (19:24)
[2019-05-09] MEDS ORDERED: SODIUM CHLORIDE 0.9% 1000ML 1,000 ML IV ONE ×3 (19:25→23:20)
[2019-05-09 19:28] LABS: PARTIAL THROMBOPLASTIN TIME 29.8 SEC (26.3-35.5); PROTHROMBIN TIME 10.8 SEC (9.6-11.6)
[2019-05-09] MEDS ORDERED: LORAZEPAM 2 MG/ML 1 ML VIAL ONE (20:15)
[2019-05-09] MEDS ORDERED: LEVOFLOXACIN 500 MG/D5W 100 ML 100 ML ONE (20:53)
[2019-05-09 21:11] LABS: APPEARANCE,URINE Clear (CLEAR); BILIRUBIN,URINE Negative (NEGATIVE); COLOR,URINE Yellow (YELLOW); GLUCOSE, URINE (UA) Negative (NEGATIVE); KETONES,URINE Negative (NEGATIVE); LEUKOCYTE ESTERASE ,URINE Negative (NEGATIVE); NITRATE,URINE Negative (NEGATIVE); OCCULT BLOOD,URINE Negative (NEGATIVE); PROTEIN,URINE Negative (NEGATIVE); UROBILINOGEN,URINE 0.2 mg/dL (0.2-1.0)
[2019-05-09] MEDS: SODIUM CHLORIDE 0.9% 1000ML 1,000 ML IV SCH (21:54)
[2019-05-09] MEDS ORDERED: DiphenhydrAMINE HCL 50 MG/ML VIAL IV PRN (22:00)
[2019-05-09] MEDS ORDERED: NITROGLYCERIN 0.4 MG SL TAB SL PRN (22:00)
[2019-05-09] MEDS ORDERED: ONDANSETRON HCL 4 MG/2 ML VIAL IV PRN (22:00)
[2019-05-09] MEDS ORDERED: ACETAMINOPHEN 325 MG TAB PO PRN ×2 (22:00)
[2019-05-09] MEDS ORDERED: SODIUM CHLORIDE 0.9% 1000ML 1,000 ML IV SCH ×2 (22:00→23:30)
[2019-05-09] MEDS: DOXYCYCLINE 100MG+NS 250ML 250 ML IV SCH (22:15)
[2019-05-09] MEDS ORDERED: FLUMAZENIL 0.1MG/1ML 5ML VIAL IV SCH ×2 (23:00)
[2019-05-10] MEDS ORDERED: SODIUM CHLORIDE 0.9% 1000ML 1,000 ML IV ONE ×2 (00:08→15:36)
[2019-05-10] MEDS ORDERED: KETOROLAC TROMETHAMINE 15MG/ML ONE ×4 (04:09→21:23)
[2019-05-10 06:56] LABS: MEAN CORPUSCULAR HEMOGLOBIN 27.3 pg (27.0-33.0); MEAN CORPUSCULAR HGB CONC 31.2 g/dL (32.0-36.0); MEAN CORPUSCULAR VOLUME 87.6 fL (79-99); PLATELET COUNT (AUTO) 130 K/uL (130-400); RED BLOOD CELL COUNT(AUTO) 3.88 MIL/uL (4.00-5.50); RED CELL DISTRIBUTION WIDTH 15.4 % (11.0-15.5); WHITE BLOOD COUNT (AUTO) 6.7 K/uL (4.8-10.8)
[2019-05-10 07:16] LABS: ALBUMIN 2.4 g/dL (3.5-5.0); BILIRUBIN,TOTAL 0.4 mg/dL (0.2-1.0); CREATININE 0.6 mg/dL (0.5-1.5); MAGNESIUM 2.1 mg/dL (1.80-2.40); POTASSIUM 3.8 mmol/L (3.5-5.1); TOTAL PROTEIN, SERUM 5.5 g/dL (6.0-8.3)
[2019-05-10] MEDS: SODIUM CHLORIDE 0.9% 1000ML 1,000 ML IV SCH ×2 (07:54→17:54)
[2019-05-10 08:39] LABS: BAND NEUTROPHILS % (MANUAL) 1 % (0-2); EOSINOPHILS % (MANUAL) 2 % (1-6); LYMPHOCYTES % (MANUAL) 11 % (22-44); MAN.DIFF COMMENT-IMPRESSION MANUAL DIFFERENTIAL; MONOCYTES % (MANUAL) 6 % (2-9); SEGMENTED NEUTROPHILS % 80 % (40-70)
[2019-05-10 08:40] LABS: PLATELET MORPHOLOGY COMMENT ADEQUATE
[2019-05-10] MEDS: ENOXAPARIN SODIUM 30 MG/0.3 ML SQ SCH (09:00)
[2019-05-10] MEDS: PANTOPRAZOLE SODIUM 40 MG TABLET.DR PO SCH (09:00)
[2019-05-10] MEDS ORDERED: FAMOTIDINE 20MG TAB 20 MG TAB PO SCH (09:00)
[2019-05-10] MEDS: DOXYCYCLINE 100MG+NS 250ML 250 ML IV SCH (10:15)
[2019-05-10] MEDS ORDERED: LORAZEPAM 2 MG/ML 1 ML VIAL ONE ×2 (10:33→21:24)
[2019-05-10] MEDS ORDERED: ACETAMINOPHEN 325 MG TAB ONE (15:35)
[2019-05-10 16:29] LABS: CRP QUANTITATIVE 133.8 mg/L (0.00-9.0)
[2019-05-10] MEDS ORDERED: VANCOMYCIN 1GM+NS 250ML 250 ML IV SCH (18:00)
[2019-05-10] MEDS ORDERED: ONDANSETRON HCL 4 MG/2 ML VIAL IVP PRN (18:00)
[2019-05-10] MEDS ORDERED: ACETAMINOPHEN 325 MG TAB PO PRN (18:00)
[2019-05-10] MEDS: SIMVASTATIN 20 MG TABLET PO SCH (21:00)
[2019-05-10] MEDS: Gabapentin 800 MG PO SCH (21:00)
[2019-05-10] MEDS ORDERED: GABAPENTIN 100 MG CAPSULE ONE (21:22)
[2019-05-10] MEDS ORDERED: SIMVASTATIN 10 MG TABLET ONE (21:22)
[2019-05-10] MEDS ORDERED: LEVOFLOXACIN 500 MG/D5W 100 ML 100 ML ONE (21:23)
[2019-05-10] MEDS ORDERED: GABAPENTIN 300 MG CAPSULE ONE (21:23)
[2019-05-10] MEDS ORDERED: ACETAMINOPHEN-CODEINE 300/30MG TAB ONE (21:24)
[2019-05-10] MEDS ORDERED: CLINDAMYCIN 900 MG/D5% WATER 50 ML IV ONE (21:25)
[2019-05-11] MEDS ORDERED: AMLO2.5T4 PO (01:53)
[2019-05-11 01:54] VITALS: BP 94/52
--- NOTE | 2019-05-11 02:00 | NUR ---
Patient arrived on unit. Able to respond to person. Drowsy. IV ativan administered in ED prior to coming up to floor. Receiving NS at 100 to RAC. R arm red, swollen, and tender. Multiple scratches to RFA. Tolerating IV antibiotics. No s/s of adverse affects. Will continue to monitor.
[2019-05-11] MEDS ORDERED: DOXYCYCLINE 100MG+NS 250ML 250 ML IV ONE (02:23)
[2019-05-11] MEDS: DOXYCYCLINE 100MG+NS 250ML 250 ML IV SCH ×3 (02:32→22:52)
[2019-05-11] MEDS: SODIUM CHLORIDE 0.9% 1000ML 1,000 ML IV SCH ×3 (02:33→13:54)
[2019-05-11] MEDS: CLINDAMYCIN 600 MG/D5% WATER 50 ML IV SCH ×5 (03:31→20:29)
[2019-05-11] MEDS: KETOROLAC TROMETHAMINE 15MG/ML IV PRN ×3 (03:36→16:05)
[2019-05-11 03:44] VITALS: BP 96/53
[2019-05-11 04:59] LABS: BASOPHILS % (AUTO) 0.4 % (0.0-5.0); EOSINOPHILS % (AUTO) 1.9 % (0.0-8.0); HEMATOCRIT 35.2 % (36-48); LYMPHOCYTES % (AUTO) 17.9 % (21.0-51.0); MEAN CORPUSCULAR HEMOGLOBIN 27.1 pg (27.0-33.0); MEAN CORPUSCULAR HGB CONC 30.1 g/dL (32.0-36.0); MONOCYTES % (AUTO) 9.9 % (3.0-13.0); NEUTROPHILS % (AUTO) 69.3 % (40.0-77.0); PLATELET COUNT (AUTO) 122 K/uL (130-400); RED BLOOD CELL COUNT(AUTO) 3.91 MIL/uL (4.00-5.50); RED CELL DISTRIBUTION WIDTH 15.4 % (11.0-15.5); WHITE BLOOD COUNT (AUTO) 5.2 K/uL (4.8-10.8)
[2019-05-11 05:10] LABS: CREATININE 0.5 mg/dL (0.5-1.5); CRP QUANTITATIVE 136.7 mg/L (0.00-9.0); MAGNESIUM 1.9 mg/dL (1.80-2.40); PHOSPHORUS 2.1 mg/dL (2.5-4.9)
[2019-05-11] MEDS ORDERED: BACL10TA PO (05:51)
--- NOTE | 2019-05-11 06:00 | NUR ---
Orders Per SCREEN MAKING SUPERVISOR Sheree Serrano give po ativan 0.5mg x1. Patient yelling and throwing items in room. Threatening to pull out IV and leave AMA unless she receives her ativan and pain meds. Ordered pain meds have been administered. BPs below 100s.
[2019-05-11 06:03] LABS: ERYTHROCYTE SEDIMENTATION RATE 20 MM/HR (0-30)
[2019-05-11] MEDS ORDERED: LORAZEPAM 0.5 MG TABLET PO SCH (06:15)
[2019-05-11] MEDS ORDERED: LORAZEPAM 0.5 MG TABLET ONE (06:15)
[2019-05-11] MEDS: LEVOTHYROXINE 88 MCG TABLET PO SCH (06:16)
[2019-05-11] MEDS: PANTOPRAZOLE SODIUM 40 MG TABLET.DR PO SCH (07:33)
[2019-05-11] MEDS: ACETAMINOPHEN-CODEINE 300/30MG TAB PO PRN ×2 (07:38→18:17)
[2019-05-11] MEDS: Gabapentin 800 MG PO SCH ×3 (07:39→21:00)
[2019-05-11] MEDS: ENOXAPARIN SODIUM 30 MG/0.3 ML SQ SCH (07:39)
[2019-05-11] MEDS ORDERED: OXYC20TA41 PO (07:46)
[2019-05-11] MEDS: ASPIRIN 81MG TAB.CHEW PO SCH (07:51)
[2019-05-11 07:55] VITALS: BP 119/66
[2019-05-11] MEDS: DOCUSATE SODIUM 100 MG CAP PO SCH (07:59)
[2019-05-11] MEDS: VANCOMYCIN 500MG+NS 100ML 100 ML IV SCH ×2 (08:01→22:52)
--- NOTE | 2019-05-11 08:34 | NUR ---
PAGED DR. MONREAL FOR NEW CONSULT. AWAITING CALLBACK AT EXT [phone].
[2019-05-11] MEDS ORDERED: PHARMACY COMMUNICATION MISC SCH (08:45)
[2019-05-11] MEDS ORDERED: GABAPENTIN PO SCH (09:00)
--- NOTE | 2019-05-11 09:00 | NUR ---
received report from darrick, 2nd floor.
[2019-05-11] MEDS ORDERED: HYDROCODONE/ACETAMINOPHEN 5/325 MG TAB ONE ×2 (09:06→09:14)
[2019-05-11] MEDS ORDERED: HYDROCODONE/ACETAMINOPHEN 5/325 MG TAB PO SCH (09:13)
[2019-05-11] MEDS: GABAPENTIN 300 MG CAPSULE PO SCH ×3 (09:30→20:27)
--- NOTE | 2019-05-11 09:30 | NUR ---
PT. NOW IN ROOM AND CRYING BECAUSE SHE IS IN SO MUCH PAIN, NOT BEING NICE ABOUT HOW SHE IS REQUESTING IT.
[2019-05-11 10:30] VITALS: BP 120/58
[2019-05-11] MEDS: GABAPENTIN 100 MG CAPSULE PO SCH ×2 (12:32→21:00)
[2019-05-11] MEDS: LORAZEPAM 2 MG/ML 1 ML VIAL IVP PRN (12:42)
--- NOTE | 2019-05-11 13:50 | NUR ---
RD NOTIFICATION DIET: HEART HEALTHY. PO INTAKE IS POOR <50% AND PT STATES HAVING POOR APPETITE FOR SEVERAL DAYS NOW. NO SIGNIFICANT WEIGHT CHANGES NOTED. RD UNABLE TO DETERMINE MALNUTRITION STATUS AT THIS TIME. NO DIFFICULTIES CHEWING OR SWALLOWING FOOD/ LIQUIDS AT THIS TIME. MEDS AND LABS REVIEWED. SKIN: RIGHT FOREARM SCRATCHES NOTED DUE TO BEING ATTACKED BY A CAT. PT REPORTS DRINKING ENSURE AT HOME AND WOULD PREFER THAT AT THIS TIME. RD RECOMMENDS TO CHANGE DIET TO REGULAR ADD ENSURE STRAWBERRY BID TO DIET ORDER WILL CONTINUE TO MONITOR PO INTAKE AND WEIGHT Addendum: 05/11/19 at [address] Amended: Links added.
--- NOTE | 2019-05-11 14:30 | NUR ---
DR. ARMENDARIZ IN TO SEE PT. CULTURES TAKEN FROM OPEN AREAS ON RT. ARM.
--- NOTE | 2019-05-11 15:50 | NUR ---
INITIAL Patient lives alone. Emergency contact is daughter, Shauna Barksdale, . No home services. DME: shower chair, BPM, cane, walker with seat, standard walker. Patient reports she is able to complete ADL's alone but at time does require help. She informed SW that her friends and family help her with shopping and transportation as needed. Patient does drive at times. PCP is Dr. Toby Quarles. Pharmacy is [facility] located on [address]. DCP is home. Addendum: 05/11/19 at 1552 by CHARY MARIEE Amended: Links added.
[2019-05-11 16:00] VITALS: BP 120/69
[2019-05-11] MEDS: ZOSYN 3.375GM+NS 50ML 50 ML IV SCH ×2 (16:05→20:29)
--- NOTE | 2019-05-11 18:35 | NUR ---
KEEPS ASKING WHEN SHE IS HAVING SURGERY, NONE SCHEDULED. PT. IS VERY UPSET(ANGRY) BECAUSE SHE NOT GETTING ENOUGH PAIN MED. AND STATES SHE MIGHT JUST GET UP AND LEAVE.
[2019-05-11 19:00] VITALS: BP 111/64
[2019-05-11] MEDS ORDERED: LORAZEPAM 1 MG TABLET ONE (20:13)
[2019-05-11] MEDS ORDERED: LORAZEPAM 1 MG TABLET PO ONE ×2 (20:15→21:30)
[2019-05-11] MEDS: HYDROCODONE/ACETAMINOPHEN 5/325 MG TAB PO PRN (20:27)
[2019-05-11] MEDS: SIMVASTATIN 20 MG TABLET PO SCH (20:28)
[2019-05-11] MEDS ORDERED: LEVOFLOXACIN 500 MG/D5W 100 ML 100 ML IV SCH (21:00)
[2019-05-11] MEDS ORDERED: IPRATROPIUM/ALBUTEROL SULFATE 3 ML SOLUTION IH SCH (22:00)
--- NOTE | 2019-05-11 23:05 | NUR ---
amitriptyline not found, phamacist has not approved it patient will take his own since it was been resumed by pilo Mukherjee
[2019-05-12] VITALS (7 sets, daily range): BP systolic 100–156; BP diastolic 46–65
[2019-05-12] MEDS: CLINDAMYCIN 600 MG/D5% WATER 50 ML IV SCH (02:00)
[2019-05-12] MEDS: HYDROCODONE/ACETAMINOPHEN 5/325 MG TAB PO PRN (03:51)
[2019-05-12] MEDS: ZOSYN 3.375GM+NS 50ML 50 ML IV SCH ×3 (04:53→21:25)
--- NOTE | 2019-05-12 06:13 | NUR ---
toradol given at 22:30 , scaner did not work properly
[2019-05-12] MEDS: GABAPENTIN 300 MG CAPSULE PO SCH ×3 (06:16→20:36)
[2019-05-12] MEDS: ALPRAZOLAM 1 MG TAB PO PRN ×2 (06:16→20:48)
[2019-05-12] MEDS: KETOROLAC TROMETHAMINE 15MG/ML IV PRN ×3 (06:17→23:04)
[2019-05-12] MEDS: Gabapentin 800 MG PO SCH ×3 (06:28→21:00)
[2019-05-12] MEDS: LEVOTHYROXINE 88 MCG TABLET PO SCH (06:30)
[2019-05-12] MEDS: IPRATROPIUM/ALBUTEROL SULFATE 3 ML SOLUTION IH SCH ×2 (06:43→17:14)
[2019-05-12] MEDS: ASPIRIN 81MG TAB.CHEW PO SCH (09:00)
--- NOTE | 2019-05-12 10:30 | NUR ---
RYLEE COLES. IN TO VISIT WITH PT. CONTINUE LOW WALL INTERMITTENT SUCTION, WILL CONTINUE TO MONITOR NG OUTPUT AND PAIN. Addendum: 05/12/19 at 1101 by FRANCESCA ROSS RN RN ERROR, WRONG PT.
[2019-05-12] MEDS: VANCOMYCIN 500MG+NS 100ML 100 ML IV SCH ×2 (10:37→23:40)
[2019-05-12] MEDS: PANTOPRAZOLE SODIUM 40 MG TABLET.DR PO SCH (10:38)
[2019-05-12] MEDS: DOCUSATE SODIUM 100 MG CAP PO SCH (10:38)
[2019-05-12] MEDS: LORAZEPAM 2 MG/ML 1 ML VIAL IVP PRN ×2 (10:40→17:03)
[2019-05-12] MEDS: ENOXAPARIN SODIUM 30 MG/0.3 ML SQ SCH (10:41)
--- NOTE | 2019-05-12 10:55 | NUR ---
DR. MEDELLIN IN TO SEE PT. PAIN MEDS, ADJUSTED. Addendum: 05/12/19 at 1100 by FRANCESCA ROSS RN RN ERROR, RIA PT
[2019-05-12] MEDS: GABAPENTIN 100 MG CAPSULE PO SCH ×2 (12:00→20:35)
[2019-05-12] MEDS: OXYCODONE HCL 5 MG TAB PO PRN ×2 (12:03→17:22)
[2019-05-12] MEDS: BACLOFEN 10 MG TABLET PO SCH ×2 (14:26→20:36)
[2019-05-12] MEDS: SIMVASTATIN 20 MG TABLET PO SCH (20:36)
[2019-05-12] MEDS: AMITRIPTYLINE HCL 150 MG PO SCH (21:00)
[2019-05-13] MEDS ORDERED: VANCOMYCIN PROTOCOL PER PHARMACY IV SCH (02:00)
[2019-05-13] MEDS: OXYCODONE HCL 5 MG TAB PO PRN ×3 (02:04→17:13)
[2019-05-13] MEDS: SODIUM CHLORIDE 0.9% 1000ML 1,000 ML IV SCH ×4 (02:07→17:13)
[2019-05-13 03:38] VITALS: BP 115/62
[2019-05-13] MEDS: ZOSYN 3.375GM+NS 50ML 50 ML IV SCH ×3 (04:37→20:17)
[2019-05-13] MEDS: KETOROLAC TROMETHAMINE 15MG/ML IV PRN ×3 (04:38→21:29)
[2019-05-13] MEDS: IPRATROPIUM/ALBUTEROL SULFATE 3 ML SOLUTION IH SCH ×2 (05:22→18:23)
[2019-05-13] MEDS: LEVOTHYROXINE 88 MCG TABLET PO SCH (05:59)
[2019-05-13] MEDS: ALPRAZOLAM 1 MG TAB PO PRN ×4 (05:59→22:23)
[2019-05-13] MEDS: ACETAMINOPHEN-CODEINE 300/30MG TAB PO PRN ×2 (05:59→20:15)
[2019-05-13] MEDS: BACLOFEN 10 MG TABLET PO SCH ×3 (06:08→17:13)
[2019-05-13] MEDS ORDERED: PHARMACY COMMUNICATION MISC SCH (06:15)
[2019-05-13 06:34] LABS: BASOPHILS % (AUTO) 0.6 % (0.0-5.0); EOSINOPHILS % (AUTO) 4.3 % (0.0-8.0); HEMATOCRIT 35.7 % (36-48); MEAN CORPUSCULAR HGB CONC 30.5 g/dL (32.0-36.0); MEAN CORPUSCULAR VOLUME 88.6 fL (79-99); NEUTROPHILS % (AUTO) 49.1 % (40.0-77.0); PLATELET COUNT (AUTO) 140 K/uL (130-400); RED BLOOD CELL COUNT(AUTO) 4.03 MIL/uL (4.00-5.50); RED CELL DISTRIBUTION WIDTH 15.5 % (11.0-15.5); WHITE BLOOD COUNT (AUTO) 3.5 K/uL (4.8-10.8)
[2019-05-13 06:46] LABS: CREATININE 0.6 mg/dL (0.5-1.5); POTASSIUM 3.9 mmol/L (3.5-5.1)
[2019-05-13 07:23] VITALS: BP 117/64
[2019-05-13] MEDS: Gabapentin 800 MG PO SCH (07:58)
[2019-05-13] MEDS: GABAPENTIN 300 MG CAPSULE PO SCH ×3 (08:28→17:12)
[2019-05-13] MEDS: LORAZEPAM 2 MG/ML 1 ML VIAL IVP PRN (08:28)
[2019-05-13] MEDS: DOCUSATE SODIUM 100 MG CAP PO SCH (08:28)
[2019-05-13] MEDS: ASPIRIN 81MG TAB.CHEW PO SCH (08:29)
[2019-05-13] MEDS: PANTOPRAZOLE SODIUM 40 MG TABLET.DR PO SCH (08:29)
[2019-05-13] MEDS: ENOXAPARIN SODIUM 30 MG/0.3 ML SQ SCH (08:29)
[2019-05-13] MEDS ORDERED: VANCOMYCIN 1.5 GM in SODIUM CHLORIDE 0.9% 250 ML IV SCH (09:00)
[2019-05-13] MEDS ORDERED: VANCOMYCIN 500MG+NS 100ML 100 ML IV SCH ×2 (11:30→21:00)
[2019-05-13] MEDS: GABAPENTIN 100 MG CAPSULE PO SCH ×2 (11:44→17:13)
[2019-05-13 12:00] VITALS: BP 102/56
[2019-05-13 16:00] VITALS: BP 117/70
[2019-05-13 19:00] VITALS: BP 104/63
--- NOTE | 2019-05-13 19:56 | NUR ---
PAIN Pt is upset,demanding pain medication q 2 hrs.Started crying,she states,"Im under the care of a pain specialist,I 'm in pain all the time".
[2019-05-13] MEDS: SIMVASTATIN 20 MG TABLET PO SCH (20:15)
[2019-05-13] MEDS: AMITRIPTYLINE HCL 150 MG PO SCH (20:40)
[2019-05-13] MEDS ORDERED: GABAPENTIN 300 MG CAPSULE PO SCH (21:00)
--- NOTE | 2019-05-13 22:31 | NUR ---
PAIN It has only been an hour ago and pt wants her other kind of pain med.CAROL ANN Hill was aware of pt asking for meds all the time.
--- NOTE | 2019-05-13 22:33 | NUR ---
XANAX Xanax given this time for anxiety.
[2019-05-13 23:00] VITALS: BP 116/70
--- NOTE | 2019-05-13 23:14 | NUR ---
MED EFFECT Pt appears to be sleeping,eyes closed.Respirations even and unlabored.
[2019-05-14] MEDS: SODIUM CHLORIDE 0.9% 1000ML 1,000 ML IV SCH ×3 (02:01→21:54)
--- NOTE | 2019-05-14 02:13 | NUR ---
ASLEEP Pt remains sleeping,respirations even and unlabored.No signs of distress.
[2019-05-14 03:00] VITALS: BP 115/63
--- NOTE | 2019-05-14 04:00 | NUR ---
SLEPT Pt slept well.No distress noted.
[2019-05-14] MEDS: ZOSYN 3.375GM+NS 50ML 50 ML IV SCH ×3 (04:32→21:46)
[2019-05-14] MEDS: IPRATROPIUM/ALBUTEROL SULFATE 3 ML SOLUTION IH SCH ×2 (05:19→19:14)
[2019-05-14] MEDS: BACLOFEN 10 MG TABLET PO SCH ×3 (05:29→18:49)
[2019-05-14] MEDS: LEVOTHYROXINE 88 MCG TABLET PO SCH (05:29)
[2019-05-14] MEDS: KETOROLAC TROMETHAMINE 15MG/ML IV PRN ×3 (05:30→21:53)
[2019-05-14] MEDS ORDERED: GABAPENTIN 300 MG CAPSULE ONE ×2 (05:46→05:48)
[2019-05-14] MEDS: ALPRAZOLAM 1 MG TAB PO PRN ×3 (05:51→18:49)
[2019-05-14] MEDS: GABAPENTIN 300 MG CAPSULE PO SCH ×4 (05:52→21:45)
--- NOTE | 2019-05-14 05:53 | NUR ---
AWAKE/DEMANDING Pt was aroused when RT and lab came,she started to yell,"I want my seizure medications and my anxiety medications now"."You all woke me up".
[2019-05-14 05:58] LABS: EOSINOPHILS % (AUTO) 6.2 % (0.0-8.0); HEMATOCRIT 36.3 % (36-48); LYMPHOCYTES % (AUTO) 35.4 % (21.0-51.0); MEAN CORPUSCULAR HEMOGLOBIN 26.9 pg (27.0-33.0); MEAN CORPUSCULAR HGB CONC 30.3 g/dL (32.0-36.0); MEAN CORPUSCULAR VOLUME 88.8 fL (79-99); MONOCYTES % (AUTO) 8.8 % (3.0-13.0); NEUTROPHILS % (AUTO) 48.3 % (40.0-77.0); PLATELET COUNT (AUTO) 169 K/uL (130-400); RED BLOOD CELL COUNT(AUTO) 4.09 MIL/uL (4.00-5.50); RED CELL DISTRIBUTION WIDTH 15.6 % (11.0-15.5); WHITE BLOOD COUNT (AUTO) 3.1 K/uL (4.8-10.8)
--- NOTE | 2019-05-14 07:00 | NUR ---
ROUNDS Pt asleep,arousable,denies pain or discomfort.
[2019-05-14 07:22] VITALS: BP 110/60
[2019-05-14] MEDS: ACETAMINOPHEN-CODEINE 300/30MG TAB PO PRN (09:09)
[2019-05-14] MEDS: DOCUSATE SODIUM 100 MG CAP PO SCH (09:10)
[2019-05-14] MEDS: PANTOPRAZOLE SODIUM 40 MG TABLET.DR PO SCH (09:10)
[2019-05-14] MEDS: ASPIRIN 81MG TAB.CHEW PO SCH (09:10)
[2019-05-14] MEDS: ENOXAPARIN SODIUM 30 MG/0.3 ML SQ SCH (09:11)
--- NOTE | 2019-05-14 09:40 | NUR ---
NURSING NOTE Patient was screaming, really loud, stating her medication for pain was not on time, calling nurse's names, cursing the nurse and the staff; very agitated and extremely loud. She had gotten out of bed and was bent over the mattress at a 90-degree angle. The medication she requested, oxycodon, was not available in [facility] and patient was informed that pharmacy would have to be called and nurse would have to go get the medicine. She yelled to give her anything, any pill she has for pain. She got a pain medication for level 4-6, tylenol # 3, and was informed and agreed to receive it. She calmed down immediately and jumped back in bed, still cursing at nurses and calling me names. Pharmacy was notified and stated medication is in the other [facility], which I confirmed it is. Dr. Ansari was updated. Stated not to give her anymore medications and if she starts screaming again to inform him. Also, a consult for psychiatry was ordered.
--- NOTE | 2019-05-14 09:45 | NUR ---
PSYCHIATRY CONSULT Called Dr. Garza' office. No answer. Left detailed voice message and ph #.
[2019-05-14] MEDS ORDERED: COMPOUND IV REFRIGERATED 1 EACH IVSOLN MISC PRN (10:15)
[2019-05-14] MEDS ORDERED: VANCOMYCIN 1.5 GM in SODIUM CHLORIDE 0.9% 250 ML IV SCH (10:15)
[2019-05-14] MEDS: OXYCODONE HCL 5 MG TAB PO PRN (11:58)
[2019-05-14] MEDS ORDERED: GABAPENTIN 300 MG CAPSULE PO SCH ×2 (12:00→18:00)
[2019-05-14] MEDS ORDERED: GABAPENTIN 100 MG CAPSULE PO SCH ×3 (12:00→21:00)
[2019-05-14] MEDS: GABAPENTIN 100 MG CAPSULE PO SCH ×3 (12:02→21:45)
[2019-05-14 12:07] VITALS: BP 111/74
[2019-05-14 16:00] VITALS: BP 113/57
[2019-05-14] MEDS ORDERED: OXYCODONE HCL 5 MG TAB PO PRN (18:30)
[2019-05-14 20:00] VITALS: BP 104/56
[2019-05-14] MEDS: SIMVASTATIN 20 MG TABLET PO SCH (21:44)
[2019-05-14] MEDS: AMITRIPTYLINE HCL 150 MG PO SCH (22:01)
[2019-05-14] MEDS ORDERED: MONT10TA26 PO (22:05)
[2019-05-14] MEDS: VANCOMYCIN 750MG + NS 250 ML IV SCH ×2 (22:09)
[2019-05-15] VITALS (7 sets, daily range): BP systolic 100–124; BP diastolic 58–81
[2019-05-15] MEDS: OXYCODONE HCL 5 MG TAB PO PRN ×5 (00:30→22:02)
[2019-05-15] MEDS: ZOSYN 3.375GM+NS 50ML 50 ML IV SCH ×3 (05:09→21:57)
[2019-05-15] MEDS: SODIUM CHLORIDE 0.9% 1000ML 1,000 ML IV SCH ×2 (05:23→18:39)
[2019-05-15] MEDS: BACLOFEN 10 MG TABLET PO SCH ×3 (05:43→18:25)
[2019-05-15] MEDS: LEVOTHYROXINE 88 MCG TABLET PO SCH (05:43)
[2019-05-15] MEDS: GABAPENTIN 300 MG CAPSULE PO SCH ×4 (05:43→21:58)
[2019-05-15] MEDS: KETOROLAC TROMETHAMINE 15MG/ML IV PRN ×3 (05:44→14:55)
[2019-05-15] MEDS: IPRATROPIUM/ALBUTEROL SULFATE 3 ML SOLUTION IH SCH ×2 (07:04→18:18)
[2019-05-15] MEDS: PANTOPRAZOLE SODIUM 40 MG TABLET.DR PO SCH (08:21)
[2019-05-15] MEDS: ALPRAZOLAM 1 MG TAB PO PRN ×2 (08:21→12:48)
[2019-05-15] MEDS: DOCUSATE SODIUM 100 MG CAP PO SCH (08:21)
[2019-05-15] MEDS: ASPIRIN 81MG TAB.CHEW PO SCH (08:21)
[2019-05-15] MEDS: OXYCODONE HCL 30 MG TABLET PO PRN ×3 (08:29→16:41)
[2019-05-15] MEDS: CARBAMAZEPINE 200 MG TABLET PO SCH ×3 (08:31→21:59)
[2019-05-15] MEDS: ENOXAPARIN SODIUM 30 MG/0.3 ML SQ SCH (08:36)
[2019-05-15] MEDS: VANCOMYCIN 750MG + NS 250 ML IV SCH ×4 (08:37→21:59)
[2019-05-15] MEDS: GABAPENTIN 100 MG CAPSULE PO SCH ×3 (12:40→21:58)
[2019-05-15] MEDS: ACETAMINOPHEN-CODEINE 300/30MG TAB PO PRN (19:14)
[2019-05-15] MEDS: AMITRIPTYLINE HCL 150 MG PO SCH (21:00)
[2019-05-15] MEDS ORDERED: BISACODYL 10 MG SUPP.RECT RC ONE (21:55)
[2019-05-15] MEDS: SIMVASTATIN 20 MG TABLET PO SCH (21:58)
[2019-05-16] MEDS: OXYCODONE HCL 5 MG TAB PO PRN ×4 (02:12→19:48)
[2019-05-16 03:45] VITALS: BP 142/69
[2019-05-16] MEDS: ACETAMINOPHEN-CODEINE 300/30MG TAB PO PRN ×3 (04:01→22:16)
[2019-05-16] MEDS: ZOSYN 3.375GM+NS 50ML 50 ML IV SCH ×3 (06:22→19:51)
[2019-05-16] MEDS: IPRATROPIUM/ALBUTEROL SULFATE 3 ML SOLUTION IH SCH ×2 (06:58→18:31)
[2019-05-16 08:13] VITALS: BP 123/64
[2019-05-16 08:24] LABS: BASOPHILS % (AUTO) 0.7 % (0.0-5.0); EOSINOPHILS % (AUTO) 4.2 % (0.0-8.0); HEMATOCRIT 38.4 % (36-48); MEAN CORPUSCULAR HEMOGLOBIN 26.7 pg (27.0-33.0); MEAN CORPUSCULAR HGB CONC 29.7 g/dL (32.0-36.0); MEAN CORPUSCULAR VOLUME 89.9 fL (79-99); MONOCYTES % (AUTO) 7.2 % (3.0-13.0); NEUTROPHILS % (AUTO) 59.4 % (40.0-77.0); PLATELET COUNT (AUTO) 161 K/uL (130-400); RED BLOOD CELL COUNT(AUTO) 4.27 MIL/uL (4.00-5.50); RED CELL DISTRIBUTION WIDTH 15.8 % (11.0-15.5)
[2019-05-16 08:38] LABS: CREATININE 0.6 mg/dL (0.5-1.5); POTASSIUM 4.3 mmol/L (3.5-5.1)
[2019-05-16] MEDS: CARBAMAZEPINE 200 MG TABLET PO SCH ×3 (09:19→19:50)
[2019-05-16] MEDS: DOCUSATE SODIUM 100 MG CAP PO SCH (09:19)
[2019-05-16] MEDS: BACLOFEN 10 MG TABLET PO SCH ×3 (09:20→17:15)
[2019-05-16] MEDS: SODIUM CHLORIDE 0.9% 1000ML 1,000 ML IV SCH ×2 (09:20→23:25)
[2019-05-16] MEDS: PANTOPRAZOLE SODIUM 40 MG TABLET.DR PO SCH (09:20)
[2019-05-16] MEDS: LEVOTHYROXINE 88 MCG TABLET PO SCH (09:20)
[2019-05-16] MEDS: GABAPENTIN 300 MG CAPSULE PO SCH ×4 (09:20→19:51)
[2019-05-16] MEDS: ASPIRIN 81MG TAB.CHEW PO SCH (09:21)
[2019-05-16] MEDS: ENOXAPARIN SODIUM 30 MG/0.3 ML SQ SCH (09:22)
[2019-05-16] MEDS: VANCOMYCIN 1GM+NS 250ML 250 ML IV SCH ×2 (10:17→19:49)
[2019-05-16 11:30] VITALS: BP 132/59
[2019-05-16] MEDS: GABAPENTIN 100 MG CAPSULE PO SCH ×3 (12:44→19:50)
[2019-05-16] MEDS: OXYCODONE HCL 30 MG TABLET PO PRN (13:27)
[2019-05-16 17:42] VITALS: BP 123/60
[2019-05-16] MEDS: SIMVASTATIN 20 MG TABLET PO SCH (19:51)
[2019-05-16 20:00] VITALS: BP 145/60
[2019-05-16] MEDS: AMITRIPTYLINE HCL 150 MG PO SCH (21:58)
[2019-05-16] MEDS: MUPIROCIN OINTMENT 22 GM TUBE TP SCH (22:05)
[2019-05-16] MEDS: LORAZEPAM 2 MG/ML 1 ML VIAL IVP PRN (22:06)
[2019-05-17] VITALS: BP 129/61
[2019-05-17] MEDS: OXYCODONE HCL 5 MG TAB PO PRN ×4 (02:05→17:35)
[2019-05-17 03:53] VITALS: BP 130/67
[2019-05-17] MEDS: LEVOTHYROXINE 88 MCG TABLET PO SCH (04:42)
[2019-05-17] MEDS: ZOSYN 3.375GM+NS 50ML 50 ML IV SCH ×2 (04:42→13:26)
[2019-05-17] MEDS: BACLOFEN 10 MG TABLET PO SCH ×3 (04:42→17:35)
[2019-05-17] MEDS: GABAPENTIN 300 MG CAPSULE PO SCH ×3 (04:59→17:35)
[2019-05-17 08:00] VITALS: BP 131/72
[2019-05-17] MEDS: ASPIRIN 81MG TAB.CHEW PO SCH (08:25)
[2019-05-17] MEDS: VANCOMYCIN 1GM+NS 250ML 250 ML IV SCH (08:25)
[2019-05-17] MEDS: DOCUSATE SODIUM 100 MG CAP PO SCH (08:26)
[2019-05-17] MEDS: PANTOPRAZOLE SODIUM 40 MG TABLET.DR PO SCH (08:26)
[2019-05-17] MEDS: CARBAMAZEPINE 200 MG TABLET PO SCH ×2 (08:26→14:26)
[2019-05-17] MEDS: ENOXAPARIN SODIUM 30 MG/0.3 ML SQ SCH (08:27)
[2019-05-17] MEDS: MUPIROCIN OINTMENT 22 GM TUBE TP SCH (08:27)
[2019-05-17] MEDS ORDERED: LACTULOSE 20 GM/30 ML UDCUP PO SCH (11:45)
[2019-05-17 12:00] VITALS: BP 133/74
[2019-05-17] MEDS: GABAPENTIN 100 MG CAPSULE PO SCH ×2 (12:02→17:34)
[2019-05-17] MEDS: ALPRAZOLAM 1 MG TAB PO PRN (12:03)
[2019-05-17] MEDS ORDERED: AMOX-429 PO (13:16)
--- NOTE | 2019-05-17 13:58 | NUR ---
DC HOPPER DC HOPPER AT APPROX 1345 HOURS, REMOVED APPROX 10CC FROM CATHETER RESERVOIR, PATIENT TOLERATED REMOVAL WITHOUT INCIDENT. PATIENT DUE TO VOID 6 HOURS, (1945 HOURS).
[2019-05-17] MEDS: ACETAMINOPHEN-CODEINE 300/30MG TAB PO PRN (14:26)
--- NOTE | 2019-05-17 15:32 | NUR ---
1519 patient signed IM Letter and received BPCI Letter. I faxed IM Letter to [phone] and placed in chart under consent tab
[2019-05-17 16:00] VITALS: BP 139/89
--- NOTE | 2019-05-17 16:39 | NUR ---
CM NOTE MEET WITH PATIENT IN ROOM REGARDING PT EVAL RECOMMENDING SNF FOR PHYSICAL THERAPY. PER NURSE REPORT, PATIENT IS AAOX3. PER PATIENT, DECLINING SNF RECOMMENDATIONS AT THE MOMENT BECAUSE SHE RATHER NOT EXPOSE HERSELF TO OTHER POSSIBLE INFECTED/SICK PEOPLE D/T DIAGNOSIS OF LUPUS. PATIENT EDUCATED ON FALL PREVENTION AT HOME. PER PATIENT, HAS FRIENDS THAT COME TO SEE HER AT ALL TIMES AND HELP HER WITH HER ERRANDS. PRIMARY NURSE, DAVID MORENO, MADE AWARE.
[2019-05-17] MEDS: IPRATROPIUM/ALBUTEROL SULFATE 3 ML SOLUTION IH SCH (18:25)
--- NOTE | 2019-05-17 19:24 | NUR ---
PATIENT DISCHARGED PATIENT DISCHARGED, IV x2 DISCONTINUED, CATHLON INTACT, BLEEDING CONTROLLED, PATIENT TOLERATED WITHOUT INCIDENT. DISCUSSED FOLLOW UP APPOINTMENTS WITH PCP WITHIN 3 WEEKS AND 2 NEW MEDICATIONS. PATIENT STATED SHE HAD NO QUESTIONS. PATIENT WAITING ON HER FRIEND TO PICK HER UP.
== END 2019-05-17 19:40 | disposition home or self-care (01) | DRG 603 ==
LOC: EDH 18:05 → OBSVTOIN 20:15 → EDHIP 20:15 → 3DH 21:15 → 3CH 21:16 → EDHIP 05-10 00:11 → 2DH 05-11 01:39 → 3CH 05-11 11:16
PROVIDERS: ADMIT Internal Medicine; ATTEND Internal Medicine
DX: L03.113 Cellulitis of right upper limb (principal); E87.1 Hypo-osmolality and hyponatremia; E44.1 Mild protein-calorie malnutrition; Z68.1 Body mass index [BMI] 19.9 or less, adult; L02.413 Cutaneous abscess of right upper limb; F39 Unspecified mood [affective] disorder; F43.10 Post-traumatic stress disorder, unspecified; G40.A09 Absence epileptic syndrome, not intractable, without status epilepticus; G89.4 Chronic pain syndrome; I10 Essential (primary) hypertension; F32.9 Major depressive disorder, single episode, unspecified; M19.90 Unspecified osteoarthritis, unspecified site; M79.7 Fibromyalgia; J45.909 Unspecified asthma, uncomplicated; I25.10 Atherosclerotic heart disease of native coronary artery without angina pectoris; F41.9 Anxiety disorder, unspecified; M06.4 Inflammatory polyarthropathy; R54 Age-related physical debility; W55.01XA Bitten by cat, initial encounter; Z82.3 Family history of stroke; Z82.49 Family history of ischemic heart disease and other diseases of the circulatory system; Z82.0 Family history of epilepsy and other diseases of the nervous system; Z83.3 Family history of diabetes mellitus; Z86.73 Personal history of transient ischemic attack (TIA), and cerebral infarction without residual deficits; Z90.13 Acquired absence of bilateral breasts and nipples; Z85.820 Personal history of malignant melanoma of skin; Z85.3 Personal history of malignant neoplasm of breast; Z79.891 Long term (current) use of opiate analgesic; Z74.01 Bed confinement status; Z98.82 Breast implant status; W55.03XA Scratched by cat, initial encounter; Y92.89 Other specified places as the place of occurrence of the external cause; Z88.1 Allergy status to other antibiotic agents; Z88.8 Allergy status to other drugs, medicaments and biological substances
CPT/HCPCS: 36415; 70450; 73060; 73090; 76882; 80048; 80053; 80202; 81003; 82550; 83605; 83690; 83735; 83880; 84100; 84145; 85025; 85610; 85651; 85730; 86140; 87040; 87070; 87076; 87088; 87804; 93005; 94640; 94664; 96374; 96375; 97039; G0378; J0696; J1650; J1885; J1956; J2060; J2543; J3370; J3490; J7030

== ENCOUNTER → 2019-08-20 | Outpatient (CLI) | payer MEDICARE ==
[~2019-08-20] MED LIST changes: -ACET-66 PO; +AMIT150T PO; +AMLO2.5T4 PO; +AMOX-429 PO; +CARB200T6 PO; +FLUT1DIS3 IH; +METO-391 PO; +MONT10TA26 PO; +NITR0.4T50 SL; +OXYC20TA41 PO; +REGADENOSON 0.4 MG/5 ML PF SYG IVP SCH; +SIMV-46 PO
== END | disposition home or self-care (01) ==
LOC: SHCH 08:11
PROVIDERS: ATTEND Internal Medicine Cardiovascular Disease
DX: I25.10 Atherosclerotic heart disease of native coronary artery without angina pectoris (principal)
CPT/HCPCS: 78452; 93017; 96374; A9500 ×2; J2785

== ENCOUNTER → 2019-08-21 | Outpatient (CLI) | payer MEDICARE ==
[~2019-08-21] MED LIST changes: -REGADENOSON 0.4 MG/5 ML PF SYG IVP SCH
== END | disposition home or self-care (01) ==
LOC: RAH 14:39
PROVIDERS: ATTEND Orthopaedic Surgery
DX: M71.21 Synovial cyst of popliteal space [Baker], right knee (principal)
CPT/HCPCS: 73721

== ENCOUNTER 2019-10-18 07:00 | Day surgery (SDC) | payer MEDICARE ==
[2019-10-17 09:39] VITALS: BP 85/56
--- NOTE | 2019-10-17 11:45 | NUR ---
PT INFORMED ALEKSANDAR GAMBLE PT DOES NOT HAVE ANYONE TO STAY WITH HER AT NIGHT AT HOME. SHE WILL INFORM DR. COHEN AND CALL ME BACK.
--- NOTE | 2019-10-17 14:14 | NUR ---
DALIA SWENSON FROM DR. COHEN OFFICE ON PHONE. STATES SHE SPOKE TO PT IN REGARDS TO HAVING SOMEONE STAY WITH HER.PT STATES SHE HAS SOMEONE STAYING WITH HER.
[~2019-10-18] VITALS: Ht 161.3 cm; Wt 49.9 kg
[2019-10-18] VITALS (11 sets, daily range): BP systolic 94–110; BP diastolic 49–64
[~2019-10-18 07:00] MED LIST changes: -AMIT150T PO; -AMIT75TA2 PO; -AMOX-429 PO; -BUDE10.22 IH; -DOCU100T9 PO; -SIMV-46 PO; -SIMV40TA59 PO; +SODIUM CHLORIDE 0.9% 500ML 500 ML IV SCH
[2019-10-18] MEDS ORDERED: SODIUM CHLORIDE 0.9% 1000ML 1,000 ML IV ONE (08:27)
[2019-10-18] MEDS ORDERED: IOHEXOL-350 50ML VIAL IV ONE (09:49)
[2019-10-18] MEDS ORDERED: HEPARIN SODIUM 1000UNIT/ML 10ML VIAL ONE (09:49)
[2019-10-18] MEDS ORDERED: IOHEXOL 350 MG/ML 100ML INFUS..BTL IV ONE (09:49)
[2019-10-18] MEDS ORDERED: LIDOCAINE HCL 2% 20ML ONE (09:49)
[2019-10-18] MEDS ORDERED: MIDAZOLAM HCL 1 MG/ML 2ML VIAL ONE ×2 (10:06→10:37)
[2019-10-18] MEDS ORDERED: SIMV-46 PO (10:18)
--- NOTE | 2019-10-18 10:20 | NUR ---
RENETTA MORENO HERE TO PICK PT UP FOR ELEMENT[employer]. JOSH JACKSON STARTED HOPPER VIA STERILE TECHNIQUE AT PT'S REQUEST AFTER RECEIVING PERMISSION FROM DR. COHEN. REPORT GIVEN TO JOSH JACKSON, CARE RENDERED OVER.
[2019-10-18] MEDS ORDERED: AMIT150T PO (11:01)
== END 2019-10-18 16:16 | disposition home or self-care (01) ==
LOC: DAH 07:00
PROVIDERS: ATTEND Internal Medicine Cardiovascular Disease
DX: I20.9 Angina pectoris, unspecified (principal); R94.39 Abnormal result of other cardiovascular function study; E03.9 Hypothyroidism, unspecified; E78.5 Hyperlipidemia, unspecified; G40.909 Epilepsy, unspecified, not intractable, without status epilepticus; M19.011 Primary osteoarthritis, right shoulder; F43.10 Post-traumatic stress disorder, unspecified; Z87.39 Personal history of other diseases of the musculoskeletal system and connective tissue; Z86.59 Personal history of other mental and behavioral disorders; Z88.8 Allergy status to other drugs, medicaments and biological substances; Z96.652 Presence of left artificial knee joint; Z90.49 Acquired absence of other specified parts of digestive tract; Z98.890 Other specified postprocedural states; Z79.02 Long term (current) use of antithrombotics/antiplatelets; Z79.01 Long term (current) use of anticoagulants; Z87.891 Personal history of nicotine dependence; Z79.890 Hormone replacement therapy; Z86.73 Personal history of transient ischemic attack (TIA), and cerebral infarction without residual deficits
CPT/HCPCS: 36415; 71045; 80048; 81001; 85025; 85610; 85730; 93005; 93458; A4215; A4216; A4221; A4222; A4223 ×3; A4606; A4663; C1760; C1894; J1644; J2250 ×2; J3490; J7030; Q9965; Q9967 ×2; 99156; 99157

== ENCOUNTER 2020-03-13 11:06 | Inpatient (IN) | payer MEDICARE ==
[~2020-03-13] VITALS: Ht 160 cm; Wt 54.0 kg
[~2020-03-13 11:06] MED LIST changes: +AMIT150T PO; -AMLO2.5T4 PO; -METO-391 PO; +MONT-39 PO; -MONT10TA26 PO; +SIMV-46 PO; -SODIUM CHLORIDE 0.9% 500ML 500 ML IV SCH
[2020-03-13] MEDS ORDERED: ASPIRIN 325 MG TABLET ONE (12:30)
[2020-03-13 12:34] LABS: BASOPHILS % (AUTO) 0.6 % (0.0-5.0); EOSINOPHILS % (AUTO) 1.3 % (0.0-8.0); LYMPHOCYTES % (AUTO) 14.4 % (21.0-51.0); MEAN CORPUSCULAR HEMOGLOBIN 30.4 pg (27.0-33.0); MEAN CORPUSCULAR HGB CONC 32.9 g/dL (32.0-36.0); MEAN CORPUSCULAR VOLUME 92.3 fL (79-99); MONOCYTES % (AUTO) 7.3 % (3.0-13.0); NEUTROPHILS % (AUTO) 76.1 % (40.0-77.0); PLATELET COUNT (AUTO) 211 K/uL (130-400); RED BLOOD CELL COUNT(AUTO) 4.44 MIL/uL (4.00-5.50); RED CELL DISTRIBUTION WIDTH 12.9 % (11.0-15.5); WHITE BLOOD COUNT (AUTO) 6.8 K/uL (4.8-10.8)
[2020-03-13 12:46] LABS: INR 1.07 (0.85-1.15); PROTHROMBIN TIME 11.4 SEC (9.6-11.6)
[2020-03-13 12:48] LABS: PARTIAL THROMBOPLASTIN TIME 29.6 SEC (26.3-35.5)
[2020-03-13 12:52] LABS: B-TYPE NATRIURETIC PEPTIDE 6 pg/mL (0-100)
[2020-03-13 12:54] LABS: CREATININE 0.6 mg/dL (0.5-1.5); POTASSIUM 4.4 mmol/L (3.5-5.1)
[2020-03-13 12:58] LABS: ALBUMIN 3.2 g/dL (3.5-5.0); BILIRUBIN,TOTAL 0.3 mg/dL (0.2-1.0); CRP QUANTITATIVE 9.7 mg/L (0.00-9.0); TOTAL PROTEIN, SERUM 6.5 g/dL (6.0-8.3)
[2020-03-13] MEDS ORDERED: OXYCODONE HCL PO PRN (14:45)
[2020-03-13] MEDS ORDERED: NITROGLYCERIN 0.4 MG SL TAB SL PRN (14:45)
[2020-03-13 15:06] LABS: CHOLESTEROL 170 mg/dL (<200); HDL CHOLESTEROL 58 mg/dL (35-85); LDL DIRECT 98 mg/dL (0-99); TRIGLYCERIDES 119 mg/dL (30-200)
[2020-03-13] MEDS ORDERED: OXYCODONE HCL 30 MG TABLET PO PRN (15:15)
[2020-03-13] MEDS ORDERED: ALBUTEROL INHALER 90MCG/INH IH PRN (17:30)
[2020-03-13 17:46] VITALS: BP 107/71
[2020-03-13 20:00] VITALS: BP 116/66
[2020-03-13] MEDS: AMITRIPTYLINE 25 MG TABLET PO SCH (21:00)
[2020-03-13] MEDS ORDERED: NON-FORMULARY MEDICATION 1 EACH (Simvastatin 40 MG) PO SCH (21:00)
[2020-03-13] MEDS ORDERED: NON-FORMULARY MEDICATION 1 EACH (Gabapentin 800 MG) PO SCH (21:00)
[2020-03-13] MEDS ORDERED: AMITRIPTYLINE HCL 150 MG PO SCH (21:00)
[2020-03-13] MEDS: BACLOFEN 10 MG TABLET PO SCH (21:49)
[2020-03-13] MEDS: SIMVASTATIN 20 MG TABLET PO SCH (21:49)
[2020-03-13] MEDS: CARBAMAZEPINE 200 MG TABLET PO SCH (21:49)
[2020-03-13] MEDS: ADVAIR 250-50 DISKUS IH SCH (21:49)
[2020-03-13] MEDS: ASPIRIN 81MG CHEW TAB PO SCH (21:50)
[2020-03-13] MEDS: GABAPENTIN 100 MG CAPSULE PO SCH (21:50)
[2020-03-13] MEDS: ALPRAZOLAM 1 MG TAB PO PRN (23:10)
[2020-03-13] MEDS: OXYCODONE HCL 5 MG TAB PO PRN (23:10)
[2020-03-14] VITALS (11 sets, daily range): BP systolic 93–122; BP diastolic 48–70
[2020-03-14] MEDS ORDERED: LEVOTHYROXINE 88 MCG TABLET ONE (05:29)
[2020-03-14] MEDS: LEVOTHYROXINE 88 MCG TABLET PO SCH (05:35)
[2020-03-14] MEDS ORDERED: NON-FORMULARY MEDICATION 1 EACH (Levothyroxine Sodium 88 MCG) PO SCH (09:00)
[2020-03-14] MEDS: ISOSORBIDE MONO 30MG SR TAB PO SCH (09:00)
[2020-03-14] MEDS: BACLOFEN 10 MG TABLET PO SCH ×2 (12:18→22:32)
[2020-03-14] MEDS: CLOPIDOGREL 75MG TAB PO SCH (12:18)
[2020-03-14] MEDS: MONTELUKAST SODIUM 10 MG TAB PO SCH (12:18)
[2020-03-14] MEDS: CARBAMAZEPINE 200 MG TABLET PO SCH ×2 (12:19→22:32)
[2020-03-14] MEDS: ASPIRIN 81MG CHEW TAB PO SCH ×2 (12:19→22:31)
[2020-03-14] MEDS: GABAPENTIN 100 MG CAPSULE PO SCH ×2 (12:19→22:32)
[2020-03-14 18:21] LABS: BASOPHILS % (AUTO) 0.5 % (0.0-5.0); EOSINOPHILS % (AUTO) 2.8 % (0.0-8.0); HEMATOCRIT 37.7 % (36-48); LYMPHOCYTES % (AUTO) 20.8 % (21.0-51.0); MEAN CORPUSCULAR HGB CONC 32.6 g/dL (32.0-36.0); MONOCYTES % (AUTO) 8.1 % (3.0-13.0); NEUTROPHILS % (AUTO) 67.4 % (40.0-77.0); PLATELET COUNT (AUTO) 209 K/uL (130-400); RED CELL DISTRIBUTION WIDTH 12.8 % (11.0-15.5); WHITE BLOOD COUNT (AUTO) 5.7 K/uL (4.8-10.8)
[2020-03-14 19:13] LABS: CREATININE 0.5 mg/dL (0.5-1.5); POTASSIUM 3.8 mmol/L (3.5-5.1)
[2020-03-14] MEDS: ADVAIR 250-50 DISKUS IH SCH (21:00)
[2020-03-14] MEDS: SIMVASTATIN 20 MG TABLET PO SCH (22:33)
[2020-03-14] MEDS: AMITRIPTYLINE 25 MG TABLET PO SCH (22:33)
[2020-03-15] VITALS: BP 107/57
[2020-03-15 04:00] VITALS: BP 131/65
[2020-03-15] MEDS: LEVOTHYROXINE 88 MCG TABLET PO SCH (06:24)
[2020-03-15 07:22] LABS: BASOPHILS % (AUTO) 0.5 % (0.0-5.0); EOSINOPHILS % (AUTO) 1.7 % (0.0-8.0); HEMATOCRIT 43.3 % (36-48); LYMPHOCYTES % (AUTO) 15.1 % (21.0-51.0); MEAN CORPUSCULAR HEMOGLOBIN 29.9 pg (27.0-33.0); MEAN CORPUSCULAR VOLUME 90.4 fL (79-99); MONOCYTES % (AUTO) 7.3 % (3.0-13.0); NEUTROPHILS % (AUTO) 75.1 % (40.0-77.0); PLATELET COUNT (AUTO) 192 K/uL (130-400); RED BLOOD CELL COUNT(AUTO) 4.79 MIL/uL (4.00-5.50); RED CELL DISTRIBUTION WIDTH 12.3 % (11.0-15.5); WHITE BLOOD COUNT (AUTO) 6.4 K/uL (4.8-10.8)
[2020-03-15 07:43] LABS: CARBON DIOXIDE 28 mmol/L (21-32); CHLORIDE 100 mmol/L (101-111); CREATINE KINASE, TOTAL 42 U/L (21-232); CREATININE 0.5 mg/dL (0.5-1.5); GLOMERULAR FILTR. RATE CALC 130 mL/min (>60); GLUCOSE,RANDOM 93 mg/dL (70-105); MYOGLOBIN 41 ng/mL (10-92); POTASSIUM 3.7 mmol/L (3.5-5.1); SODIUM SERUM 135 mmol/L (136-145); TROPONIN I < 0.04 ng/mL (0.00-0.06); UREA NITROGEN, BLOOD 7 mg/dL (7-18)
[2020-03-15] MEDS ORDERED: LORAZEPAM 2 MG/ML 1 ML VIAL IM SCH (07:56)
[2020-03-15 08:00] VITALS: BP 121/71
[2020-03-15] MEDS: MONTELUKAST SODIUM 10 MG TAB PO SCH (08:41)
[2020-03-15] MEDS: ISOSORBIDE MONO 30MG SR TAB PO SCH (08:41)
[2020-03-15] MEDS: CLOPIDOGREL 75MG TAB PO SCH (08:41)
[2020-03-15] MEDS: GABAPENTIN 100 MG CAPSULE PO SCH ×2 (08:41→14:00)
[2020-03-15] MEDS: ASPIRIN 81MG CHEW TAB PO SCH (08:42)
[2020-03-15] MEDS: BACLOFEN 10 MG TABLET PO SCH ×2 (08:42→13:58)
[2020-03-15] MEDS: CARBAMAZEPINE 200 MG TABLET PO SCH ×2 (08:42→13:58)
[2020-03-15] MEDS: ADVAIR 250-50 DISKUS IH SCH (08:44)
[2020-03-15] MEDS: OXYCODONE HCL 5 MG TAB PO PRN ×2 (08:51→14:49)
[2020-03-15] MEDS ORDERED: LORAZEPAM 2 MG/ML 1 ML VIAL IVP PRN (10:53)
[2020-03-15] MEDS: ALPRAZOLAM 1 MG TAB PO PRN (11:03)
[2020-03-15 12:00] VITALS: BP 94/65
[2020-03-15] MEDS ORDERED: [UNRECOGNIZED DRUG - REMARK] MISC SCH (14:00)
[2020-03-15] MEDS ORDERED: DULO20 PO (14:30)
[2020-03-15 16:13] VITALS: BP 111/65
[2020-03-15] MEDS ORDERED: DULOXETINE HCL 30 MG CAP PO SCH (21:00)
== END 2020-03-15 18:52 | disposition home or self-care (01) | DRG 313 ==
LOC: EDH 11:06 → EDHIP 14:35 → 4CH 17:31
PROVIDERS: ADMIT Internal Medicine; ATTEND Internal Medicine
DX: R07.89 Other chest pain (principal); G93.40 Encephalopathy, unspecified; I16.0 Hypertensive urgency; E78.5 Hyperlipidemia, unspecified; E03.9 Hypothyroidism, unspecified; G40.909 Epilepsy, unspecified, not intractable, without status epilepticus; Z20.822 Contact with and (suspected) exposure to COVID-19; F41.1 Generalized anxiety disorder; F43.10 Post-traumatic stress disorder, unspecified; G89.29 Other chronic pain; I10 Essential (primary) hypertension; I25.10 Atherosclerotic heart disease of native coronary artery without angina pectoris; J45.909 Unspecified asthma, uncomplicated; M19.90 Unspecified osteoarthritis, unspecified site; M32.9 Systemic lupus erythematosus, unspecified; M79.7 Fibromyalgia; Z79.02 Long term (current) use of antithrombotics/antiplatelets; Z79.82 Long term (current) use of aspirin; Z79.899 Other long term (current) drug therapy; Z82.0 Family history of epilepsy and other diseases of the nervous system; Z82.3 Family history of stroke; Z82.49 Family history of ischemic heart disease and other diseases of the circulatory system; Z83.3 Family history of diabetes mellitus; Z86.73 Personal history of transient ischemic attack (TIA), and cerebral infarction without residual deficits; Z87.891 Personal history of nicotine dependence; Z88.7 Allergy status to serum and vaccine; Z90.49 Acquired absence of other specified parts of digestive tract; Z90.710 Acquired absence of both cervix and uterus; I25.2 Old myocardial infarction; Z80.3 Family history of malignant neoplasm of breast; Z88.8 Allergy status to other drugs, medicaments and biological substances
CPT/HCPCS: 36415; 70450; 71045; 80048; 80053; 80061; 82140; 82550; 82948; 83735; 83874; 83880; 84484; 85025; 85610; 85730; 86140; 87426; 87880; 93005; 99291; G0378; J2060; U0003

== ENCOUNTER 2020-06-02 15:52 | Emergency (ER) | payer MEDICARE ==
[~2020-06-02 15:52] MED LIST changes: +DULO20 PO; -MONT-39 PO; +MONT10TA32 PO
[2020-06-02 16:22] LABS: BASOPHILS % (AUTO) 0.5 % (0.0-5.0); EOSINOPHILS % (AUTO) 2.7 % (0.0-8.0); LYMPHOCYTES % (AUTO) 14.6 % (21.0-51.0); MEAN CORPUSCULAR HEMOGLOBIN 29.8 pg (27.0-33.0); MEAN CORPUSCULAR VOLUME 90.2 fL (79-99); MONOCYTES % (AUTO) 7.9 % (3.0-13.0); PLATELET COUNT (AUTO) 220 K/uL (130-400); RED CELL DISTRIBUTION WIDTH 11.9 % (11.0-15.5); WHITE BLOOD COUNT (AUTO) 6.3 K/uL (4.8-10.8)
[2020-06-02 16:24] LABS: CREATININE 0.6 mg/dL (0.5-1.5); POTASSIUM 4.4 mmol/L (3.5-5.1); PROTHROMBIN TIME 10.9 SEC (9.6-11.6)
[2020-06-02 16:30] LABS: ALBUMIN 3.2 g/dL (3.5-5.0); BILIRUBIN,TOTAL 0.2 mg/dL (0.2-1.0); TOTAL PROTEIN, SERUM 6.2 g/dL (6.0-8.3)
[2020-06-02] MEDS ORDERED: MECLIZINE HCL 25 MG TABLET ONE (16:34)
[2020-06-02 17:59] LABS: APPEARANCE,URINE Clear (CLEAR); BILIRUBIN,URINE Negative (NEGATIVE); COLOR,URINE Yellow (YELLOW); GLUCOSE, URINE (UA) Negative (NEGATIVE); KETONES,URINE Negative (NEGATIVE); LEUKOCYTE ESTERASE ,URINE Moderate (NEGATIVE); NITRATE,URINE Negative (NEGATIVE); OCCULT BLOOD,URINE Negative (NEGATIVE); PROTEIN,URINE Negative (NEGATIVE); UROBILINOGEN,URINE 0.2 mg/dL (0.2-1.0)
[2020-06-02 18:20] LABS: AMORPHOUS SEDIMENT,UR Rare /LPF (None Seen); BACTERIA,URINE Few /HPF (None Seen); RBC,URINE 0-1 /HPF (0-1); SQUAMOUS EPITHELIAL CELL,UR Few /HPF (0-2)
== END 2020-06-02 19:03 | disposition home or self-care (01) ==
LOC: EDH 15:52
DX: R42 Dizziness and giddiness (principal); E87.1 Hypo-osmolality and hyponatremia; F41.9 Anxiety disorder, unspecified; M19.90 Unspecified osteoarthritis, unspecified site; J45.909 Unspecified asthma, uncomplicated; I25.10 Atherosclerotic heart disease of native coronary artery without angina pectoris; F32.9 Major depressive disorder, single episode, unspecified; Z90.49 Acquired absence of other specified parts of digestive tract; Z90.710 Acquired absence of both cervix and uterus; Z87.891 Personal history of nicotine dependence; Z79.899 Other long term (current) drug therapy; Z88.7 Allergy status to serum and vaccine
CPT/HCPCS: 36415; 70450; 71045; 80053; 81001; 82550; 84484; 85025; 85610; 85730; 87077; 87088; 87186; 93005; 96360

== ENCOUNTER 2020-07-22 23:02 | Emergency (ER) | payer MEDICARE ==
[2020-07-22 23:20] LABS: BASOPHILS % (AUTO) 0.7 % (0.0-5.0); LYMPHOCYTES % (AUTO) 24.7 % (21.0-51.0); MEAN CORPUSCULAR HGB CONC 33.6 g/dL (32.0-36.0); MEAN CORPUSCULAR VOLUME 89.4 fL (79-99); MONOCYTES % (AUTO) 8.3 % (3.0-13.0); PLATELET COUNT (AUTO) 222 K/uL (130-400); RED BLOOD CELL COUNT(AUTO) 4.36 MIL/uL (4.00-5.50); RED CELL DISTRIBUTION WIDTH 12.3 % (11.0-15.5); WHITE BLOOD COUNT (AUTO) 5.8 K/uL (4.8-10.8)
[2020-07-22 23:27] LABS: CREATININE 0.6 mg/dL (0.5-1.5); POTASSIUM 4.3 mmol/L (3.5-5.1)
[2020-07-22 23:31] LABS: ALBUMIN 3.3 g/dL (3.5-5.0); BILIRUBIN,TOTAL 0.3 mg/dL (0.2-1.0); TOTAL PROTEIN, SERUM 6.6 g/dL (6.0-8.3)
[2020-07-23 00:03] LABS: INR 1.29 (0.85-1.15); PROTHROMBIN TIME 13.7 SEC (9.6-11.6)
[2020-07-23 00:04] LABS: PARTIAL THROMBOPLASTIN TIME 24.2 SEC (26.3-35.5)
[2020-07-23] MEDS ORDERED: KETOROLAC TROMETHAMINE 15MG/ML ONE (00:43)
[2020-07-23] MEDS ORDERED: PROCHLORPERAZINE EDISYLATE 10 MG/2 ML VIAL ONE (00:43)
[2020-07-23 00:44] LABS: APPEARANCE,URINE Clear (CLEAR); BILIRUBIN,URINE Negative (NEGATIVE); COLOR,URINE Yellow (YELLOW); GLUCOSE, URINE (UA) Negative (NEGATIVE); KETONES,URINE Negative (NEGATIVE); LEUKOCYTE ESTERASE ,URINE Small (NEGATIVE); NITRATE,URINE Positive (NEGATIVE); OCCULT BLOOD,URINE Negative (NEGATIVE); PROTEIN,URINE Negative (NEGATIVE); UROBILINOGEN,URINE 0.2 mg/dL (0.2-1.0)
[2020-07-23 01:11] LABS: BACTERIA,URINE Few /HPF (None Seen); RBC,URINE None Seen /HPF (0-1); SQUAMOUS EPITHELIAL CELL,UR Rare /HPF (0-2)
[2020-07-23] MEDS ORDERED: CEFTRIAXONE SODIUM 1 GM ONE (02:42)
[2020-07-23] MEDS ORDERED: ACETAMINOPHEN EXTRA STRENGTH 500 MG TABLET ONE (06:43)
== END 2020-07-23 10:07 | disposition home or self-care (01) ==
LOC: EDH 23:02
DX: S06.0X1A Concussion with loss of consciousness of 30 minutes or less, initial encounter (principal); S50.312A Abrasion of left elbow, initial encounter; S50.311A Abrasion of right elbow, initial encounter; S80.212A Abrasion, left knee, initial encounter; S80.211A Abrasion, right knee, initial encounter; J45.909 Unspecified asthma, uncomplicated; M19.90 Unspecified osteoarthritis, unspecified site; F41.9 Anxiety disorder, unspecified; I25.10 Atherosclerotic heart disease of native coronary artery without angina pectoris; M81.0 Age-related osteoporosis without current pathological fracture; M79.7 Fibromyalgia; Z88.7 Allergy status to serum and vaccine; Z90.710 Acquired absence of both cervix and uterus; Z98.890 Other specified postprocedural states; W01.0XXA Fall on same level from slipping, tripping and stumbling without subsequent striking against object, initial encounter; Y93.01 Activity, walking, marching and hiking; Y92.89 Other specified places as the place of occurrence of the external cause; Y99.8 Other external cause status
CPT/HCPCS: 36415; 70450; 72125; 80053; 81001; 84484; 85025; 85610; 85730; 87077; 87088; 87186; 93005; 96374; 96375; 99285; J0696; J0780; J1885

== ENCOUNTER 2021-01-29 00:25 | Inpatient (IN) | payer MEDICARE ==
[~2021-01-29] VITALS: Ht 160 cm; Wt 55.9 kg
[~2021-01-29 00:25] MED LIST changes: +MONT-39 PO; -MONT10TA32 PO
[2021-01-29] MEDS ORDERED: ONDANSETRON 4MG INJ IVP ONE (01:30)
[2021-01-29] MEDS ORDERED: ZOSYN 3.375GM +NS 50ML IV ONE (01:30)
[2021-01-29] MEDS ORDERED: 0.9%NACL 1000ML 1,572 ML IV ONE (01:30)
[2021-01-29 01:41] LABS: BASOPHILS % (AUTO) 0.2 % (0.0-5.0); EOSINOPHILS % (AUTO) 0.4 % (0.0-8.0); LYMPHOCYTES % (AUTO) 2.8 % (21.0-51.0); MEAN CORPUSCULAR HEMOGLOBIN 29.8 pg (27.0-33.0); MEAN CORPUSCULAR HGB CONC 32.9 g/dL (32.0-36.0); MEAN CORPUSCULAR VOLUME 90.5 fL (79-99); MONOCYTES % (AUTO) 5.7 % (3.0-13.0); NEUTROPHILS % (AUTO) 89.7 % (40.0-77.0); PLATELET COUNT (AUTO) 157 K/uL (130-400); RED BLOOD CELL COUNT(AUTO) 4.53 MIL/uL (4.00-5.50); RED CELL DISTRIBUTION WIDTH 13.4 % (11.0-15.5); WHITE BLOOD COUNT (AUTO) 12.7 K/uL (4.8-10.8)
[2021-01-29 01:52] LABS: INR 1.06 (0.85-1.15); PROTHROMBIN TIME 11.5 SEC (9.6-11.6)
[2021-01-29 01:58] LABS: CREATININE 0.8 mg/dL (0.5-1.5); POTASSIUM 3.1 mmol/L (3.5-5.1)
[2021-01-29 02:02] LABS: ALBUMIN 3.1 g/dL (3.5-5.0); BILIRUBIN,TOTAL 0.3 mg/dL (0.2-1.0); TOTAL PROTEIN, SERUM 6.5 g/dL (6.0-8.3)
[2021-01-29 02:04] LABS: APPEARANCE,URINE Clear (CLEAR); BILIRUBIN,URINE Negative (NEGATIVE); COLOR,URINE Yellow (YELLOW); GLUCOSE, URINE (UA) Negative (NEGATIVE); KETONES,URINE Negative (NEGATIVE); LEUKOCYTE ESTERASE ,URINE Small (NEGATIVE); NITRATE,URINE Positive (NEGATIVE); OCCULT BLOOD,URINE Negative (NEGATIVE); PH,URINE 6.5 (5.0-8.0); PROTEIN,URINE POS 1+ mg/dL (NEGATIVE); UROBILINOGEN,URINE 0.2 mg/dL (0.2-1.0)
[2021-01-29 02:23] LABS: BACTERIA,URINE Rare /HPF (None Seen); RBC,URINE 0-1 /HPF (0-1); SQUAMOUS EPITHELIAL CELL,UR Rare /HPF (0-2)
[2021-01-29] MEDS ORDERED: KETOROLAC 15MG/ML VIAL (15MG/ML) IV ONE (02:30)
[2021-01-29] MEDS ORDERED: ACETAMINOPHEN 500 MG TABLET PO ONE (02:30)
[2021-01-29] MEDS ORDERED: FENTANYL CITRATE PF 50 MCG/1 ML 2ML VIAL IVP ONE (03:00)
[2021-01-29] MEDS ORDERED: BACL10TA PO (03:51)
[2021-01-29] MEDS ORDERED: AMLO-257 PO (03:51)
[2021-01-29] MEDS ORDERED: AMIT75TA2 PO (03:51)
[2021-01-29] MEDS ORDERED: CLOP75TA14 PO (03:51)
[2021-01-29] MEDS ORDERED: SIMV40TA59 PO (03:51)
[2021-01-29] MEDS ORDERED: GABA800T9 PO ×4 (03:51)
[2021-01-29] MEDS ORDERED: MONT-39 PO (03:51)
[2021-01-29] MEDS ORDERED: LEVO88CA4 PO (03:51)
[2021-01-29] MEDS ORDERED: CARB200T6 PO (03:51)
[2021-01-29] MEDS ORDERED: ISOS30TA11 PO (03:51)
[2021-01-29] MEDS ORDERED: OXYC20TA41 PO (03:51)
[2021-01-29] MEDS: LACTATED RINGERS 1000ML 1,000 ML IV SCH ×2 (04:01→23:06)
[2021-01-29] MEDS: CARBAMAZEPINE 200 MG TABLET PO SCH ×3 (05:00→21:00)
[2021-01-29] MEDS: ZOSYN 3.375GM+NS 50ML 50 ML IV SCH ×3 (05:00→23:06)
[2021-01-29] MEDS: GABAPENTIN 300 MG CAPSULE PO SCH ×3 (10:15→18:00)
[2021-01-29] MEDS: BACLOFEN 10 MG TABLET PO SCH ×3 (10:30→23:07)
[2021-01-29] MEDS: FAMOTIDINE 20MG TAB PO SCH (10:30)
[2021-01-29] MEDS: ISOSORBIDE DINITRATE 10MG TAB PO SCH (10:30)
[2021-01-29] MEDS: LEVOTHYROXINE 88 MCG TABLET PO SCH (10:30)
[2021-01-29] MEDS: AMITRIPTYLINE 25 MG TABLET PO SCH (10:30)
[2021-01-29] MEDS: CLOPIDOGREL 75MG TAB PO SCH (10:53)
[2021-01-29] MEDS ORDERED: 0.9%NACL 100ML 100 ML ONE (11:51)
[2021-01-29] MEDS: ACETAMINOPHEN 325 MG TAB PO PRN ×2 (11:58→18:15)
[2021-01-29] MEDS ORDERED: GABAPENTIN 300 MG CAPSULE PO SCH (12:00)
[2021-01-29] MEDS: GABAPENTIN 100 MG CAPSULE PO SCH ×2 (12:00→18:00)
[2021-01-29] MEDS ORDERED: 0.9%NACL 1000ML 1,000 ML IV ONE (12:44)
[2021-01-29] MEDS ORDERED: 0.9%NACL 1000ML 1,000 ML IV SCH (20:00)
[2021-01-29 22:45] VITALS: BP 97/54
[2021-01-29] MEDS: SIMVASTATIN 20 MG TABLET PO SCH (23:06)
[2021-01-29] MEDS: OXYCODONE HCL 5 MG TAB PO PRN (23:07)
[2021-01-29] MEDS: MONTELUKAST SODIUM 10 MG TAB PO SCH (23:07)
[2021-01-30 04:00] VITALS: BP 116/56
[2021-01-30] MEDS: CARBAMAZEPINE 200 MG TABLET PO SCH ×3 (05:00→22:18)
[2021-01-30] MEDS: LEVOTHYROXINE 88 MCG TABLET PO SCH (05:27)
[2021-01-30] MEDS: LACTATED RINGERS 1000ML 1,000 ML IV SCH (05:28)
[2021-01-30] MEDS: ZOSYN 3.375GM+NS 50ML 50 ML IV SCH ×3 (05:28→21:17)
[2021-01-30 05:30] LABS: LYMPHOCYTES % (AUTO) 7.4 % (21.0-51.0); MEAN CORPUSCULAR HEMOGLOBIN 29.3 pg (27.0-33.0); MEAN CORPUSCULAR HGB CONC 32.1 g/dL (32.0-36.0); MEAN CORPUSCULAR VOLUME 91.3 fL (79-99); NEUTROPHILS % (AUTO) 88.6 % (40.0-77.0); PLATELET COUNT (AUTO) 105 K/uL (130-400); RED BLOOD CELL COUNT(AUTO) 4.27 MIL/uL (4.00-5.50); RED CELL DISTRIBUTION WIDTH 13.6 % (11.0-15.5); WHITE BLOOD COUNT (AUTO) 4.1 K/uL (4.8-10.8)
[2021-01-30 05:42] LABS: CREATININE 0.8 mg/dL (0.5-1.5); MAGNESIUM 1.7 mg/dL (1.80-2.40); PHOSPHORUS 1.9 mg/dL (2.5-4.9)
[2021-01-30] MEDS: ACETAMINOPHEN 325 MG TAB PO PRN (05:42)
[2021-01-30 06:04] LABS: POTASSIUM 2.2 mmol/L (3.5-5.1)
[2021-01-30] MEDS ORDERED: POTASSIUM CHLORIDE 10% ELIXIR 20 MEQ/15 ML UDCUP PO PRN (06:30)
[2021-01-30] MEDS ORDERED: MAGNESIUM 2GM PREMIX 50ML 50 ML IV SCH (06:30)
[2021-01-30] MEDS ORDERED: POTASSIUM CHLORIDE 20MEQ/100ML 100 ML IV PRN (06:30)
[2021-01-30] MEDS ORDERED: MAGNESIUM 2GM PREMIX 50ML 50 ML IV ONE (06:36)
[2021-01-30] MEDS ORDERED: KCL 20 MEQ ERTAB PO ONE (06:36)
[2021-01-30] MEDS ORDERED: LACTULOSE 20 GM/30 ML UDCUP ONE (06:36)
[2021-01-30] MEDS: KCL 20 MEQ ERTAB PO PRN ×2 (07:33→09:06)
[2021-01-30 08:00] VITALS: BP 116/58
[2021-01-30] MEDS: AMITRIPTYLINE 25 MG TABLET PO SCH (09:00)
[2021-01-30] MEDS: GABAPENTIN 300 MG CAPSULE PO SCH ×3 (09:00→18:00)
[2021-01-30] MEDS: LACTULOSE 20 GM/30 ML UDCUP PO PRN (09:01)
[2021-01-30] MEDS: ISOSORBIDE DINITRATE 10MG TAB PO SCH (09:02)
[2021-01-30] MEDS: FAMOTIDINE 20MG TAB PO SCH (09:05)
[2021-01-30] MEDS: BACLOFEN 10 MG TABLET PO SCH ×3 (09:06→21:18)
[2021-01-30] MEDS: CLOPIDOGREL 75MG TAB PO SCH (09:06)
[2021-01-30] MEDS: OXYCODONE HCL 5 MG TAB PO PRN ×2 (09:09→17:03)
[2021-01-30 11:54] VITALS: BP 98/54
[2021-01-30] MEDS: GABAPENTIN 100 MG CAPSULE PO SCH ×2 (12:00→18:00)
[2021-01-30] MEDS ORDERED: KCL 20 MEQ ERTAB PO SCH ×2 (13:30→17:30)
[2021-01-30] MEDS ORDERED: LACTULOSE 20 GM/30 ML UDCUP PO SCH (13:30)
[2021-01-30] MEDS: POTASSIUM CHLORIDE 20MEQ/10ML 20 MEQ in DEXTROSE 5 %-0.45 % NACL 1,000 ML IV SCH (15:55)
[2021-01-30 16:00] VITALS: BP 133/55
[2021-01-30] MEDS ORDERED: PROMETHAZINE HCL 25 MG/ML 1ML AMPULE IM SCH (16:00)
[2021-01-30] MEDS: LUBIPROSTONE 24 MCG CAP PO SCH (16:18)
[2021-01-30 20:48] VITALS: BP 113/66
[2021-01-30] MEDS: SIMVASTATIN 20 MG TABLET PO SCH (21:18)
[2021-01-30] MEDS: MONTELUKAST SODIUM 10 MG TAB PO SCH (21:18)
[2021-01-30 21:52] LABS: CREATININE 0.7 mg/dL (0.5-1.5)
[2021-01-30 21:56] LABS: POTASSIUM 2.8 mmol/L (3.5-5.1)
[2021-01-30] MEDS: HYDROXYZINE 25 MG TABLET PO ONE (22:24)
[2021-01-30] MEDS: LIDOCAINE HCL-MPF 1% 2ML VIAL IV PRN (22:24)
[2021-01-30] MEDS: POTASSIUM CHLORIDE 20MEQ/100ML 100 ML IV PRN (22:25)
[2021-01-31 00:08] VITALS: BP 115/57
[2021-01-31] MEDS ORDERED: IBUPROFEN PO (00:43)
[2021-01-31] MEDS ORDERED: ASPI-1443 PO (00:43)
[2021-01-31] MEDS ORDERED: FLUT16H NASAL (00:43)
[2021-01-31] MEDS ORDERED: NALO4SPR NS (00:43)
[2021-01-31] MEDS ORDERED: symbicort NASAL (00:43)
[2021-01-31] MEDS ORDERED: NITR0.4T50 SL (00:43)
[2021-01-31] MEDS: OXYCODONE HCL 5 MG TAB PO PRN ×2 (01:38→10:28)
[2021-01-31] MEDS: POTASSIUM CHLORIDE 20MEQ/100ML 100 ML IV PRN (03:34)
[2021-01-31] MEDS: ZOSYN 3.375GM+NS 50ML 50 ML IV SCH ×2 (05:11→16:09)
[2021-01-31] MEDS: CARBAMAZEPINE 200 MG TABLET PO SCH ×3 (05:11→20:54)
[2021-01-31] MEDS ORDERED: LORAZEPAM 2 MG/ML 1 ML VIAL IVP ONE (05:30)
[2021-01-31 08:00] VITALS: BP 109/65
[2021-01-31 08:10] LABS: HEMATOCRIT 38.5 % (36-48); MEAN CORPUSCULAR HEMOGLOBIN 29.1 pg (27.0-33.0); MEAN CORPUSCULAR HGB CONC 33.2 g/dL (32.0-36.0); MEAN CORPUSCULAR VOLUME 87.5 fL (79-99); RED BLOOD CELL COUNT(AUTO) 4.4 MIL/uL (4.00-5.50); RED CELL DISTRIBUTION WIDTH 13.5 % (11.0-15.5)
[2021-01-31] MEDS: AMITRIPTYLINE 25 MG TABLET PO SCH (08:51)
[2021-01-31] MEDS: GABAPENTIN 300 MG CAPSULE PO SCH ×3 (08:52→18:00)
[2021-01-31] MEDS: LUBIPROSTONE 24 MCG CAP PO SCH (08:53)
[2021-01-31] MEDS: CLOPIDOGREL 75MG TAB PO SCH (08:53)
[2021-01-31] MEDS: ISOSORBIDE DINITRATE 10MG TAB PO SCH (08:53)
[2021-01-31] MEDS: LEVOTHYROXINE 88 MCG TABLET PO SCH (08:55)
[2021-01-31 09:44] LABS: CREATININE 0.6 mg/dL (0.5-1.5); MAGNESIUM 2.1 mg/dL (1.80-2.40); PHOSPHORUS 1.6 mg/dL (2.5-4.9); POTASSIUM 3.2 mmol/L (3.5-5.1)
[2021-01-31] MEDS: FAMOTIDINE 20MG TAB PO SCH (10:33)
[2021-01-31] MEDS: BACLOFEN 10 MG TABLET PO SCH ×3 (10:34→20:53)
[2021-01-31 11:24] VITALS: BP 96/50
[2021-01-31] MEDS ORDERED: POTASSIUM PHOS 15 mMOL+NS250ML 250 ML IV PRN (14:30)
[2021-01-31] MEDS ORDERED: ERGOCALCIFEROL (VITAMIN D2) 50,000 UNIT CAPSULE PO SCH (15:00)
[2021-01-31 15:54] VITALS: BP 96/60
[2021-01-31] MEDS: POTASSIUM CHLORIDE 20MEQ/10ML 20 MEQ in DEXTROSE 5 %-0.45 % NACL 1,000 ML IV SCH ×2 (15:55→18:22)
[2021-01-31] MEDS: HYDROXYZINE 25 MG TABLET PO ONE (16:10)
[2021-01-31] MEDS: GABAPENTIN 100 MG CAPSULE PO SCH ×2 (16:10→18:00)
[2021-01-31] MEDS ORDERED: CEFAZOLIN SODIUM 1 GM VIAL IVP SCH (17:30)
[2021-01-31] MEDS ORDERED: METHYLNALTREXONE BROMIDE 12 MG/0.6 ML VIAL SQ SCH (18:00)
[2021-01-31 19:00] VITALS: BP 94/61
[2021-01-31] MEDS: 0.9%NACL 1000ML 1,000 ML IV SCH ×2 (19:42→20:53)
[2021-01-31] MEDS: SIMVASTATIN 20 MG TABLET PO SCH (20:54)
[2021-01-31] MEDS: MONTELUKAST SODIUM 10 MG TAB PO SCH (20:54)
[2021-01-31] MEDS: CALCIUM CARB 500MG PO SCH (20:54)
[2021-01-31] MEDS ORDERED: PHARMACY COMMUNICATION MISC SCH (23:00)
[2021-02-01] VITALS (7 sets, daily range): BP systolic 94–136; BP diastolic 54–80
[2021-02-01] MEDS: OXYCODONE HCL 5 MG TAB PO PRN ×2 (03:55→20:24)
[2021-02-01] MEDS: 0.9%NACL 1000ML 1,000 ML IV SCH ×3 (03:56→20:23)
[2021-02-01] MEDS: CARBAMAZEPINE 200 MG TABLET PO SCH ×3 (03:58→20:21)
[2021-02-01 04:26] LABS: BASOPHILS % (AUTO) 0.6 % (0.0-5.0); EOSINOPHILS % (AUTO) 1.4 % (0.0-8.0); HEMATOCRIT 38.7 % (36-48); LYMPHOCYTES % (AUTO) 19.9 % (21.0-51.0); MEAN CORPUSCULAR HEMOGLOBIN 29.2 pg (27.0-33.0); MEAN CORPUSCULAR HGB CONC 32.6 g/dL (32.0-36.0); MEAN CORPUSCULAR VOLUME 89.6 fL (79-99); MONOCYTES % (AUTO) 8.6 % (3.0-13.0); NEUTROPHILS % (AUTO) 68.7 % (40.0-77.0); PLATELET COUNT (AUTO) 115 K/uL (130-400); RED BLOOD CELL COUNT(AUTO) 4.32 MIL/uL (4.00-5.50); RED CELL DISTRIBUTION WIDTH 13.8 % (11.0-15.5); WHITE BLOOD COUNT (AUTO) 3.6 K/uL (4.8-10.8)
[2021-02-01 04:48] LABS: ALBUMIN 2.2 g/dL (3.5-5.0); BILIRUBIN,TOTAL 0.2 mg/dL (0.2-1.0); CREATININE 0.7 mg/dL (0.5-1.5); MAGNESIUM 2.1 mg/dL (1.80-2.40); PHOSPHORUS 1.2 mg/dL (2.5-4.9); TOTAL PROTEIN, SERUM 5.6 g/dL (6.0-8.3)
[2021-02-01 05:39] LABS: ERYTHROCYTE SEDIMENTATION RATE 16 MM/HR (0-30)
[2021-02-01 06:01] LABS: CRP QUANTITATIVE 134.7 mg/L (0.00-9.0)
[2021-02-01 06:07] LABS: POTASSIUM 2.7 mmol/L (3.5-5.1)
[2021-02-01] MEDS: LIDOCAINE HCL-MPF 1% 2ML VIAL IV PRN ×6 (06:20→20:24)
[2021-02-01] MEDS: CEFAZOLIN SODIUM 1 GM VIAL IVP SCH ×3 (06:20→22:11)
[2021-02-01] MEDS: POTASSIUM CHLORIDE 20MEQ/100ML 100 ML IV PRN ×4 (06:20→20:23)
[2021-02-01] MEDS: LEVOTHYROXINE 88 MCG TABLET PO SCH (06:22)
[2021-02-01] MEDS: ERGOCALCIFEROL (VITAMIN D2) 50,000 UNIT CAPSULE PO SCH (09:00)
[2021-02-01] MEDS: ISOSORBIDE DINITRATE 10MG TAB PO SCH ×3 (09:00→16:09)
[2021-02-01] MEDS: CALCITONIN 3.7 ML AEROSOL NS SCH (09:00)
[2021-02-01] MEDS: CLOPIDOGREL 75MG TAB PO SCH (09:27)
[2021-02-01] MEDS: GABAPENTIN 300 MG CAPSULE PO SCH ×3 (09:28→20:21)
[2021-02-01] MEDS: CALCIUM CARB 500MG PO SCH ×4 (09:30→20:21)
[2021-02-01] MEDS: FAMOTIDINE 20MG TAB PO SCH (09:30)
[2021-02-01] MEDS: BACLOFEN 10 MG TABLET PO SCH ×3 (09:31→20:23)
[2021-02-01] MEDS: AMITRIPTYLINE 25 MG TABLET PO SCH (09:34)
[2021-02-01] MEDS: POTASSIUM CHLORIDE 20MEQ/10ML 20 MEQ in DEXTROSE 5 %-0.45 % NACL 1,000 ML IV SCH ×2 (11:24→23:14)
[2021-02-01] MEDS: GABAPENTIN 100 MG CAPSULE PO SCH ×2 (15:47→16:12)
[2021-02-01] MEDS: SIMVASTATIN 20 MG TABLET PO SCH (20:21)
[2021-02-01] MEDS: MONTELUKAST SODIUM 10 MG TAB PO SCH (20:23)
[2021-02-02] MEDS: LIDOCAINE HCL-MPF 1% 2ML VIAL IV PRN (00:08)
[2021-02-02] MEDS: POTASSIUM CHLORIDE 20MEQ/100ML 100 ML IV PRN ×3 (00:08→11:15)
[2021-02-02] MEDS ORDERED: POTASSIUM CHLORIDE 10% ELIXIR 20 MEQ/15 ML UDCUP PO PRN (01:30)
[2021-02-02] MEDS ORDERED: LIDOCAINE HCL-MPF 1% 2ML VIAL IV PRN (01:30)
[2021-02-02] MEDS: OXYCODONE HCL 5 MG TAB PO PRN ×2 (03:18→11:21)
[2021-02-02 03:52] VITALS: BP 109/61
[2021-02-02 04:14] LABS: BASOPHILS % (AUTO) 0.5 % (0.0-5.0); EOSINOPHILS % (AUTO) 2.1 % (0.0-8.0); HEMATOCRIT 38.3 % (36-48); LYMPHOCYTES % (AUTO) 21.9 % (21.0-51.0); MEAN CORPUSCULAR HEMOGLOBIN 28.6 pg (27.0-33.0); MEAN CORPUSCULAR HGB CONC 32.9 g/dL (32.0-36.0); MONOCYTES % (AUTO) 8.8 % (3.0-13.0); NEUTROPHILS % (AUTO) 65.8 % (40.0-77.0); PLATELET COUNT (AUTO) 130 K/uL (130-400); RED CELL DISTRIBUTION WIDTH 13.9 % (11.0-15.5); WHITE BLOOD COUNT (AUTO) 4.3 K/uL (4.8-10.8)
[2021-02-02 04:39] LABS: ALBUMIN 2.4 g/dL (3.5-5.0); BILIRUBIN,TOTAL 0.3 mg/dL (0.2-1.0); CREATININE 0.6 mg/dL (0.5-1.5); MAGNESIUM 1.9 mg/dL (1.80-2.40); POTASSIUM 3.1 mmol/L (3.5-5.1); TOTAL PROTEIN, SERUM 5.8 g/dL (6.0-8.3)
[2021-02-02] MEDS: POTASSIUM CHLORIDE 20MEQ/10ML 20 MEQ in DEXTROSE 5 %-0.45 % NACL 1,000 ML IV SCH (05:28)
[2021-02-02] MEDS: LEVOTHYROXINE 88 MCG TABLET PO SCH (05:29)
[2021-02-02] MEDS: CARBAMAZEPINE 200 MG TABLET PO SCH ×2 (05:29→12:28)
[2021-02-02] MEDS: CEFAZOLIN SODIUM 1 GM VIAL IVP SCH ×2 (05:29→12:30)
[2021-02-02] MEDS: KCL 20 MEQ ERTAB PO PRN ×5 (05:33→12:28)
[2021-02-02 06:17] LABS: APPEARANCE,URINE Clear (CLEAR); BILIRUBIN,URINE Negative (NEGATIVE); COLOR,URINE Yellow (YELLOW); GLUCOSE, URINE (UA) Negative (NEGATIVE); KETONES,URINE 15 mg/dL (NEGATIVE); LEUKOCYTE ESTERASE ,URINE Small (NEGATIVE); NITRATE,URINE Negative (NEGATIVE); OCCULT BLOOD,URINE Trace (NEGATIVE); PH,URINE 7.5 (5.0-8.0); PROTEIN,URINE POS 1+ mg/dL (NEGATIVE)
[2021-02-02 06:50] LABS: BACTERIA,URINE Rare /HPF (None Seen); RBC,URINE 0-1 /HPF (0-1); SQUAMOUS EPITHELIAL CELL,UR 0-2 /HPF (0-2); YEAST,URINE BUDDING Moderate /HPF (None Seen)
[2021-02-02 07:49] VITALS: BP 118/54
[2021-02-02] MEDS: CALCITONIN 3.7 ML AEROSOL NS SCH (09:00)
[2021-02-02] MEDS: AMITRIPTYLINE 25 MG TABLET PO SCH (09:54)
[2021-02-02] MEDS: FAMOTIDINE 20MG TAB PO SCH (09:54)
[2021-02-02] MEDS: CALCIUM CARB 500MG PO SCH ×3 (09:54→16:46)
[2021-02-02] MEDS: GABAPENTIN 300 MG CAPSULE PO SCH ×2 (09:55→14:00)
[2021-02-02] MEDS: CLOPIDOGREL 75MG TAB PO SCH (09:55)
[2021-02-02] MEDS: BACLOFEN 10 MG TABLET PO SCH ×2 (09:56→14:00)
[2021-02-02] MEDS: ERGOCALCIFEROL (VITAMIN D2) 50,000 UNIT CAPSULE PO SCH (09:56)
[2021-02-02 11:00] VITALS: BP 131/56
[2021-02-02] MEDS: LACTULOSE 20 GM/30 ML UDCUP PO PRN (11:16)
[2021-02-02] MEDS ORDERED: MAGNESIUM CITRATE 296 ML SOLUTION PO ONE (13:45)
[2021-02-02] MEDS ORDERED: Ergocalciferol (Vitamin D2) PO (17:31)
[2021-02-02] MEDS ORDERED: Calcitonin,Salmon,Synthetic NS (17:31)
[2021-02-02] MEDS ORDERED: BACL5TAB PO (17:31)
[2021-02-02] MEDS ORDERED: SULF1TAB42 PO (17:31)
[2021-02-02] MEDS ORDERED: GABAPENTIN 100 MG CAPSULE PO SCH (21:00)
[2021-02-02] MEDS ORDERED: BALSAM PERU/CASTOR OIL 60 GM TUBE TP SCH (21:00)
== END 2021-02-02 19:51 | disposition home or self-care (01) | DRG 872 ==
LOC: EDH 00:25 → EDHIP 03:18 → 4BH 23:03 → 4AH 01-30 19:21
PROVIDERS: ADMIT Hospitalist; ATTEND Hospitalist
DX: A41.9 Sepsis, unspecified organism (principal); E87.1 Hypo-osmolality and hyponatremia; N39.0 Urinary tract infection, site not specified; E87.6 Hypokalemia; I48.91 Unspecified atrial fibrillation; N28.1 Cyst of kidney, acquired; Z20.822 Contact with and (suspected) exposure to COVID-19; M19.90 Unspecified osteoarthritis, unspecified site; B96.20 Unspecified Escherichia coli [E. coli] as the cause of diseases classified elsewhere; D69.6 Thrombocytopenia, unspecified; E03.9 Hypothyroidism, unspecified; E78.5 Hyperlipidemia, unspecified; E83.39 Other disorders of phosphorus metabolism; E83.42 Hypomagnesemia; E83.51 Hypocalcemia; G40.909 Epilepsy, unspecified, not intractable, without status epilepticus; G89.4 Chronic pain syndrome; I10 Essential (primary) hypertension; I25.10 Atherosclerotic heart disease of native coronary artery without angina pectoris; K56.41 Fecal impaction; J45.909 Unspecified asthma, uncomplicated; N81.4 Uterovaginal prolapse, unspecified; Z96.652 Presence of left artificial knee joint; S30.810A Abrasion of lower back and pelvis, initial encounter; Y93.89 Activity, other specified; Y92.89 Other specified places as the place of occurrence of the external cause; Y99.8 Other external cause status; Z90.710 Acquired absence of both cervix and uterus; Z88.7 Allergy status to serum and vaccine; Z88.8 Allergy status to other drugs, medicaments and biological substances; Z87.442 Personal history of urinary calculi; Z87.891 Personal history of nicotine dependence; Z85.820 Personal history of malignant melanoma of skin; Z83.3 Family history of diabetes mellitus; Z82.3 Family history of stroke; Z82.0 Family history of epilepsy and other diseases of the nervous system; Z80.3 Family history of malignant neoplasm of breast; Z82.49 Family history of ischemic heart disease and other diseases of the circulatory system
CPT/HCPCS: 36415; 71045; 74018; 80048; 80053; 81001; 82306; 82948; 83605; 83690; 83735; 84100; 84132; 84145; 84484; 85025; 85027; 85610; 85651; 86038; 86140; 86160; 86162; 86200; 86215; 86235; 86431; 87040; 87077; 87088; 87186; 87635; 87804; 93005; C9803; G0378; J0690; J1885; J2060; J2212; J2405; J2543; J2550; J3010; J3475; J3480; J3490; J7030; J7042; J7120

== ENCOUNTER → 2021-05-21 | Outpatient (CLI) | payer MEDICARE ==
[~2021-05-21] MED LIST changes: -ALBU18HF7 IH; -ALPR1TAB7 PO; -AMIT150T PO; +AMIT75TA2 PO; +AMLO-257 PO; -ASPI-1197 PO; +ASPI-1443 PO; -BACL10TA PO; +BACL5TAB PO; +CLOP75TA14 PO; -CLOP75TA32 PO; +Calcitonin,Salmon,Synthetic NS; -DULO20 PO; +Ergocalciferol (Vitamin D2) PO; +FLUT16H NASAL; -FLUT16H NS; -FLUT1DIS3 IH; +IBUPROFEN PO; +ISOS30TA11 PO; +LEVO88CA4 PO; -LEVO88TA7 PO; +NALO4SPR NS; -SIMV-46 PO; +SIMV40TA59 PO; +SULF1TAB42 PO; +symbicort NASAL
== END | disposition home or self-care (01) ==
LOC: SHCH 11:03
PROVIDERS: ATTEND Internal Medicine Cardiovascular Disease
DX: G45.9 Transient cerebral ischemic attack, unspecified (principal)
CPT/HCPCS: 93880

== ENCOUNTER 2021-06-24 20:33 | Inpatient (IN) | payer MEDICARE ==
[~2021-06-24] VITALS: Ht 165.1 cm; Wt 55.9 kg
[2021-06-24] MEDS ORDERED: ONDANSETRON 4MG INJ ONE (20:36)
[2021-06-24] MEDS ORDERED: ACETAMINOPHEN 650 MG SUPPOSITORY RC ONE (20:36)
[2021-06-24 21:02] LABS: BASOPHILS % (AUTO) 0.3 % (0.0-5.0); HEMATOCRIT 36.6 % (36-48); LYMPHOCYTES % (AUTO) 4.3 % (21.0-51.0); MEAN CORPUSCULAR HGB CONC 33.3 g/dL (32.0-36.0); MEAN CORPUSCULAR VOLUME 90.1 fL (79-99); MONOCYTES % (AUTO) 3.2 % (3.0-13.0); NEUTROPHILS % (AUTO) 91.7 % (40.0-77.0); PLATELET COUNT (AUTO) 100 K/uL (130-400); RED BLOOD CELL COUNT(AUTO) 4.06 MIL/uL (4.00-5.50); RED CELL DISTRIBUTION WIDTH 13.8 % (11.0-15.5); WHITE BLOOD COUNT (AUTO) 3.7 K/uL (4.8-10.8)
[2021-06-24 21:04] LABS: ABG BASE EXCESS -0.5 mmol/L (-2.0-3.0); ABG HCO3 24.5 mmol/L (21.0-28.0); ABG OXYGEN SATURATION 96.2 % (95.0-99.0); ABG PCO2 42 mmHg (32-45)
[2021-06-24 21:07] LABS: APPEARANCE,URINE Cloudy (CLEAR); BILIRUBIN,URINE Negative (NEGATIVE); COLOR,URINE Yellow (YELLOW); GLUCOSE, URINE (UA) TRACE mg/dL (NEGATIVE); KETONES,URINE Negative (NEGATIVE); LEUKOCYTE ESTERASE ,URINE Moderate (NEGATIVE); NITRATE,URINE Positive (NEGATIVE); OCCULT BLOOD,URINE Nonhemolyzed Trace (NEGATIVE); PH,URINE 6.5 (5.0-8.0); PROTEIN,URINE Negative (NEGATIVE); UROBILINOGEN,URINE 0.2 mg/dL (0.2-1.0)
[2021-06-24] MEDS ORDERED: ZOSYN 3.375GM+NS 50ML 50 ML ONE (21:08)
[2021-06-24 21:15] LABS: POTASSIUM 3.1 mmol/L (3.5-5.1)
[2021-06-24 21:16] LABS: INR 1.01 (0.85-1.15)
[2021-06-24 21:17] LABS: PARTIAL THROMBOPLASTIN TIME 24.8 SEC (26.3-35.5)
[2021-06-24 21:19] LABS: BILIRUBIN,TOTAL 0.3 mg/dL (0.2-1.0); TOTAL PROTEIN, SERUM 5.8 g/dL (6.0-8.3)
[2021-06-24] MEDS ORDERED: 0.9%NACL 1000ML 2,000 ML IV ONE (21:19)
[2021-06-24 21:27] LABS: BACTERIA,URINE Few /HPF (None Seen); SQUAMOUS EPITHELIAL CELL,UR Rare /HPF (0-2)
[2021-06-24 21:29] LABS: B-TYPE NATRIURETIC PEPTIDE 85 pg/mL (0-100)
[2021-06-24] MEDS ORDERED: ZOSYN 3.375GM +NS 50ML IV SCH (21:30)
[2021-06-24 21:40] LABS: AMPHET/METH SCREEN,URINE NEGATIVE (NEGATIVE); BARBITURATE SCREEN, URINE NEGATIVE (NEGATIVE); BENZODIAZEPINES SCREEN,URINE NEGATIVE (NEGATIVE); CANNABINOID SCREEN,URINE NEGATIVE (NEGATIVE); COCAINE SCREEN,URINE NEGATIVE (NEGATIVE); OPIATE SCREEN,URINE NEGATIVE (NEGATIVE); PHENCYCLIDINE SCREEN,URINE NEGATIVE (NEGATIVE)
[2021-06-24] MEDS ORDERED: LEVETIRACETAM 500 MG/5 ML SD VIAL IV STA (22:38)
[2021-06-24] MEDS ORDERED: LEVETIRACETAM 500 MG/5 ML SD VIAL IV ONE (22:44)
[2021-06-25] VITALS (20 sets, daily range): BP systolic 97–132; BP diastolic 51–80
[2021-06-25] MEDS ORDERED: POTASSIUM CHLORIDE 10% ELIXIR 20 MEQ/15 ML UDCUP PO PRN (01:30)
[2021-06-25] MEDS ORDERED: ACETAMINOPHEN 325 MG TAB PO PRN (01:30)
[2021-06-25] MEDS ORDERED: KCL 20 MEQ ERTAB PO PRN ×2 (01:30→09:00)
[2021-06-25] MEDS ORDERED: LIDOCAINE HCL-MPF 1% 2ML VIAL IV PRN ×2 (01:30→09:00)
[2021-06-25] MEDS ORDERED: LORAZEPAM 2 MG/ML 1 ML VIAL IVP PRN (01:30)
[2021-06-25] MEDS: 0.9%NACL 1000ML 1,000 ML IV SCH ×3 (02:49→21:40)
[2021-06-25 03:25] LABS: BASOPHILS % (AUTO) 0.2 % (0.0-5.0); EOSINOPHILS % (AUTO) 0.1 % (0.0-8.0); HEMATOCRIT 38.5 % (36-48); LYMPHOCYTES % (AUTO) 5.3 % (21.0-51.0); MEAN CORPUSCULAR HEMOGLOBIN 29.1 pg (27.0-33.0); MEAN CORPUSCULAR HGB CONC 31.9 g/dL (32.0-36.0); MEAN CORPUSCULAR VOLUME 91.2 fL (79-99); MONOCYTES % (AUTO) 7.1 % (3.0-13.0); NEUTROPHILS % (AUTO) 86.5 % (40.0-77.0); PLATELET COUNT (AUTO) 96 K/uL (130-400); RED BLOOD CELL COUNT(AUTO) 4.22 MIL/uL (4.00-5.50); RED CELL DISTRIBUTION WIDTH 14.1 % (11.0-15.5); WHITE BLOOD COUNT (AUTO) 10.1 K/uL (4.8-10.8)
[2021-06-25 04:22] LABS: ALBUMIN 2.4 g/dL (3.5-5.0); BILIRUBIN,TOTAL 0.2 mg/dL (0.2-1.0); CARBAMAZEPINE (TEGRETOL) 3.2 mcg/mL (4.0-12.0); CREATININE 0.8 mg/dL (0.5-1.5)
[2021-06-25 04:26] LABS: POTASSIUM 2.7 mmol/L (3.5-5.1)
[2021-06-25 04:30] LABS: ERYTHROCYTE SEDIMENTATION RATE 9 MM/HR (0-30)
[2021-06-25] MEDS: POTASSIUM CHLORIDE 10MEQ/100ML 100 ML IV PRN ×2 (04:35→05:33)
[2021-06-25] MEDS: ZOSYN 3.375GM+NS 50ML 50 ML IV SCH ×3 (05:32→21:12)
[2021-06-25] MEDS ORDERED: ACETAMINOPHEN 650 MG SUPPOSITORY RC PRN (06:00)
[2021-06-25] MEDS: FAMOTIDINE 20MG VIAL IV SCH (08:46)
[2021-06-25] MEDS: LEVETIRACETAM 1,000 MG in 0.9%NACL 100ML 100 ML IV SCH ×2 (08:46→21:12)
[2021-06-25 08:51] LABS: HEMOGLOBIN A1C 5.5 % (4.0-6.0)
[2021-06-25] MEDS ORDERED: POTASSIUM CHLORIDE 20MEQ/100ML 100 ML IV PRN (09:00)
[2021-06-25] MEDS ORDERED: ALBUTEROL 0.083% 2.5 MG/3 ML INH IH PRN (09:30)
[2021-06-25] MEDS: POTASSIUM CHLORIDE 20MEQ/100ML 100 ML IV PRN ×3 (09:35→15:54)
[2021-06-25] MEDS: LIDOCAINE HCL-MPF 1% 2ML VIAL IV PRN ×3 (09:35→15:53)
[2021-06-25] MEDS: ARTIFICAL TEARS SOL 15 ML OU SCH ×3 (11:36→21:19)
[2021-06-25] MEDS: ONDANSETRON 4MG INJ IV PRN (14:03)
[2021-06-25] MEDS ORDERED: MORPHINE 2 MG SYG ONE (14:58)
[2021-06-25] MEDS: ACETAMINOPHEN 325 MG TAB PO PRN (15:15)
[2021-06-25] MEDS ORDERED: MORPHINE 2 MG SYG IVP ONE ×2 (15:30→23:30)
[2021-06-25] MEDS: OXYCODONE HCL 30 MG TABLET PO SCH ×2 (17:45→21:12)
[2021-06-26] VITALS (20 sets, daily range): BP systolic 96–144; BP diastolic 50–92
[2021-06-26] MEDS ORDERED: LORAZEPAM 2 MG/ML 1 ML VIAL IVP PRN (01:30)
[2021-06-26] MEDS ORDERED: DIPHENHYDRAMINE HCL 25 MG CAPSULE PO ONE (02:00)
[2021-06-26] MEDS ORDERED: OXYCODONE HCL 20 MG TAB.SR.12H PO ONE (03:00)
[2021-06-26] MEDS: ARTIFICAL TEARS SOL 15 ML OU SCH ×3 (03:30→20:23)
[2021-06-26 04:04] LABS: BASOPHILS % (AUTO) 0.3 % (0.0-5.0); HEMATOCRIT 33.2 % (36-48); LYMPHOCYTES % (AUTO) 5.3 % (21.0-51.0); MEAN CORPUSCULAR HEMOGLOBIN 29.8 pg (27.0-33.0); MEAN CORPUSCULAR HGB CONC 32.2 g/dL (32.0-36.0); MEAN CORPUSCULAR VOLUME 92.5 fL (79-99); MONOCYTES % (AUTO) 7.7 % (3.0-13.0); NEUTROPHILS % (AUTO) 84.2 % (40.0-77.0); PLATELET COUNT (AUTO) 92 K/uL (130-400); RED BLOOD CELL COUNT(AUTO) 3.59 MIL/uL (4.00-5.50); RED CELL DISTRIBUTION WIDTH 14.5 % (11.0-15.5); WHITE BLOOD COUNT (AUTO) 9.4 K/uL (4.8-10.8)
[2021-06-26 04:31] LABS: CREATININE 0.5 mg/dL (0.5-1.5); MAGNESIUM 1.8 mg/dL (1.80-2.40); POTASSIUM 3.2 mmol/L (3.5-5.1); THYROID STIMULATING HORMONE 1.54 uIU/mL (0.36-3.74)
[2021-06-26] MEDS ORDERED: SODIUM CHLORIDE 3% FOR INHALATION 4 ML/AMP VIAL.NEB IH ONE ×2 (04:46→06:40)
[2021-06-26] MEDS: ONDANSETRON 4MG INJ IV PRN ×2 (05:00→11:31)
[2021-06-26] MEDS: ZOSYN 3.375GM+NS 50ML 50 ML IV SCH (06:00)
[2021-06-26] MEDS: LEVETIRACETAM 1,000 MG in 0.9%NACL 100ML 100 ML IV SCH (08:37)
[2021-06-26] MEDS: FAMOTIDINE 20MG VIAL IV SCH (08:37)
[2021-06-26] MEDS ORDERED: PHARMACY COMMUNICATION MISC SCH (09:00)
[2021-06-26] MEDS: AMLODIPINE 5 MG TAB PO SCH (09:02)
[2021-06-26] MEDS: ISOSORBIDE DINITRATE 20MG TAB PO SCH (09:04)
[2021-06-26] MEDS: OXYCODONE HCL 30 MG TABLET PO SCH ×4 (09:07→20:22)
[2021-06-26] MEDS: POTASSIUM CHLORIDE 10% ELIXIR 20 MEQ/15 ML UDCUP PO PRN ×3 (09:10→14:38)
[2021-06-26] MEDS ORDERED: ERGOCALCIFEROL (VITAMIN D2) 50,000 UNIT CAPSULE PO SCH (10:00)
[2021-06-26] MEDS ORDERED: CEFTRIAXONE 1G VIAL IVP SCH (10:30)
[2021-06-26] MEDS ORDERED: MAGNESIUM 2GM PREMIX 50ML 50 ML IV PRN (11:30)
[2021-06-26] MEDS: NEUTRA-PHOS PACKET 1 EACH PO SCH ×3 (13:05→20:10)
[2021-06-26] MEDS: AMITRIPTYLINE 25 MG TABLET PO SCH (14:38)
[2021-06-26 19:18] LABS: MAGNESIUM 2.5 mg/dL (1.80-2.40); POTASSIUM 4.4 mmol/L (3.5-5.1)
[2021-06-26] MEDS: LEVETIRACETAM 500 MG TABLET PO SCH (20:22)
[2021-06-26] MEDS: HYDROMORPHONE 0.5 MG SYG (0.5MG/0.5ML) IVP PRN (23:41)
[2021-06-27] VITALS (10 sets, daily range): BP systolic 92–118; BP diastolic 49–70
[2021-06-27] MEDS: ARTIFICAL TEARS SOL 15 ML OU SCH ×5 (03:46→21:30)
[2021-06-27 03:53] LABS: HEMATOCRIT 32.3 % (36-48); MEAN CORPUSCULAR HEMOGLOBIN 29.8 pg (27.0-33.0); MEAN CORPUSCULAR HGB CONC 31.9 g/dL (32.0-36.0); MEAN CORPUSCULAR VOLUME 93.4 fL (79-99); RED BLOOD CELL COUNT(AUTO) 3.46 MIL/uL (4.00-5.50); RED CELL DISTRIBUTION WIDTH 14.6 % (11.0-15.5); WHITE BLOOD COUNT (AUTO) 9.5 K/uL (4.8-10.8)
[2021-06-27 04:07] LABS: RETICULOCYTE % (AUTO) 1.23 % (0.42-2.23)
[2021-06-27 04:23] LABS: TOTAL IRON BINDING CAPACITY 193 mcg/dL (250-450)
[2021-06-27 04:36] LABS: CARBON DIOXIDE 26 mmol/L (21-32); CHLORIDE 108 mmol/L (101-111); GLOMERULAR FILTR. RATE CALC 58 mL/min (>60); GLUCOSE,RANDOM 115 mg/dL (70-105); PHOSPHORUS 3.3 mg/dL (2.5-4.9); POTASSIUM 4.3 mmol/L (3.5-5.1); SODIUM SERUM 139 mmol/L (136-145); THYROID STIMULATING HORMONE 4.66 uIU/mL (0.36-3.74); UREA NITROGEN, BLOOD 11 mg/dL (7-18)
[2021-06-27] MEDS: HYDROMORPHONE 0.5 MG SYG (0.5MG/0.5ML) IVP PRN (04:38)
[2021-06-27 04:42] LABS: % IRON SATURATION 2.5 % (22-44); IRON, SERUM < 5 mcg/dL (50-170)
[2021-06-27] MEDS: AMLODIPINE 5 MG TAB PO SCH (08:15)
[2021-06-27] MEDS: ISOSORBIDE DINITRATE 20MG TAB PO SCH (08:15)
[2021-06-27] MEDS: LEVETIRACETAM 500 MG TABLET PO SCH ×2 (08:15→21:07)
[2021-06-27] MEDS: AMITRIPTYLINE 25 MG TABLET PO SCH (08:15)
[2021-06-27] MEDS: OXYCODONE HCL 30 MG TABLET PO SCH ×4 (08:20→21:07)
[2021-06-27] MEDS ORDERED: CEFTRIAXONE 2GM VIAL IVP SCH (09:00)
[2021-06-27] MEDS: NEUTRA-PHOS PACKET 1 EACH PO SCH (09:15)
[2021-06-27] MEDS ORDERED: SODIUM CHLORIDE 3% FOR INHALATION 4 ML/AMP VIAL.NEB IH ONE (14:08)
[2021-06-27] MEDS ORDERED: LACTULOSE 20 GM/30 ML UDCUP PO PRN (16:30)
[2021-06-27] MEDS: ACETAMINOPHEN 325 MG TAB PO PRN (23:23)
[2021-06-28] MEDS ORDERED: DIPHENHYDRAMINE HCL 25 MG CAPSULE PO ONE
[2021-06-28 00:01] VITALS: BP 112/60
[2021-06-28] MEDS: HYDROMORPHONE 0.5 MG SYG (0.5MG/0.5ML) IVP PRN (02:26)
[2021-06-28] MEDS ORDERED: BACL10TA PO (02:41)
[2021-06-28] MEDS ORDERED: NITR0.4T50 SL (02:44)
[2021-06-28] MEDS ORDERED: GABA800T9 PO ×3 (02:44)
[2021-06-28] MEDS ORDERED: ALPR1TAB7 PO (02:44)
[2021-06-28] MEDS: ARTIFICAL TEARS SOL 15 ML OU SCH (03:24)
[2021-06-28 05:15] VITALS: BP 129/76
== END 2021-06-28 07:40 | disposition left against medical advice (07) | DRG 871 ==
LOC: EDH 20:33 → EDHIP 06-25 01:01 → 2BH 06-25 03:53 → 3DH 06-27 06:43
PROVIDERS: ADMIT Internal Medicine; ATTEND Internal Medicine
DX: A41.51 Sepsis due to Escherichia coli [E. coli] (principal); G93.41 Metabolic encephalopathy; J69.0 Pneumonitis due to inhalation of food and vomit; S06.5X9A Traumatic subdural hemorrhage with loss of consciousness of unspecified duration, initial encounter; N30.00 Acute cystitis without hematuria; I48.20 Chronic atrial fibrillation, unspecified; Z20.822 Contact with and (suspected) exposure to COVID-19; G40.901 Epilepsy, unspecified, not intractable, with status epilepticus; R73.9 Hyperglycemia, unspecified; E87.6 Hypokalemia; E83.42 Hypomagnesemia; Z53.29 Procedure and treatment not carried out because of patient's decision for other reasons; Z83.3 Family history of diabetes mellitus; Z82.3 Family history of stroke; I25.10 Atherosclerotic heart disease of native coronary artery without angina pectoris; J45.909 Unspecified asthma, uncomplicated; K59.03 Drug induced constipation; T40.605A Adverse effect of unspecified narcotics, initial encounter; M19.90 Unspecified osteoarthritis, unspecified site; S05.11XA Contusion of eyeball and orbital tissues, right eye, initial encounter; G89.4 Chronic pain syndrome; R65.20 Severe sepsis without septic shock; W18.39XA Other fall on same level, initial encounter; Z96.652 Presence of left artificial knee joint; I10 Essential (primary) hypertension; Z82.0 Family history of epilepsy and other diseases of the nervous system; Z82.49 Family history of ischemic heart disease and other diseases of the circulatory system; E78.5 Hyperlipidemia, unspecified; E03.9 Hypothyroidism, unspecified; Z87.891 Personal history of nicotine dependence; Z90.710 Acquired absence of both cervix and uterus; Z87.442 Personal history of urinary calculi; Y93.89 Activity, other specified; Y92.89 Other specified places as the place of occurrence of the external cause; Y99.8 Other external cause status; Z85.820 Personal history of malignant melanoma of skin; Z74.01 Bed confinement status; Z79.899 Other long term (current) drug therapy; R54 Age-related physical debility
CPT/HCPCS: 36415; 36600; 70450; 71045; 74018; 80048; 80053; 80156; 80305; 81001; 82140; 82550; 82607; 82728; 82746; 82803; 82948; 83036; 83540; 83550; 83605; 83735; 83880; 84100; 84132; 84145; 84443; 84484; 85025; 85027; 85045; 85610; 85651; 85730; 87040; 87077; 87088; 87186; 87635; 87804; 87880; 92610; 93005; 97039; 99291; C9803; G0378; J0696; J1170; J1953; J2060; J2405; J2543; J3475; J3480; J3490; J7030; Q0163

== ENCOUNTER → 2021-10-26 | Outpatient (CLI) | payer MEDICARE ==
[~2021-10-26] MED LIST changes: +ALPR1TAB7 PO; -ASPI-1443 PO; +BACL10TA PO; -BACL5TAB PO; -Calcitonin,Salmon,Synthetic NS; -Ergocalciferol (Vitamin D2) PO; -FLUT16H NASAL; -IBUPROFEN PO; -NALO4SPR NS; -SULF1TAB42 PO; -symbicort NASAL
== END | disposition home or self-care (01) ==
LOC: RAH 10:40
PROVIDERS: ATTEND Family Medicine
DX: N20.0 Calculus of kidney (principal); N39.0 Urinary tract infection, site not specified
CPT/HCPCS: 76770

== ENCOUNTER → 2022-01-29 | Outpatient (CLI) | payer MEDICARE ==
[~2022-01-29] MED LIST changes: +CLOP-31 PO; -CLOP75TA14 PO
== END | disposition home or self-care (01) ==
LOC: SHCH 12:51
PROVIDERS: ATTEND Internal Medicine Cardiovascular Disease
DX: I51.7 Cardiomegaly (principal); I50.20 Unspecified systolic (congestive) heart failure; I51.89 Other ill-defined heart diseases; E78.5 Hyperlipidemia, unspecified
CPT/HCPCS: 93306